=== PATIENT | male | born 1945 | race African-American/Black ===

== ENCOUNTER 2017-09-01 07:24 | Inpatient (IN) | payer OTHER ==
[2017-09-01 07:31] VITALS: BMI 21.7
--- NOTE | 2017-09-01 07:45 | PDOC ---
History of Present Illness <Leonela Andino - Last Filed: 09/01/17 11:22> - General History Source: Patient - History of Present Illness Initial Comments: 09/01/17 08:02 72 y.o. male with a PMH of HTN, HLD, and cardiac triple bypass (09/2012) presents c/o chest pain. Patient states the pain started @ 3 a.m. this morning and woke him from sleep. Pain is sharp, 8/10, intermittent, localized to his L lower chest with some associated shortness of breath but no lightheadedness, palpitations, diaphoresis. Patient also c/o LUQ pain that started yesterday afternoon while he was walking outside with his . 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 Patient's last BM was yesterday evening and was consistent with prior BM and he is tolerating PO intake. Patient denies fever, chills, nausea/vomiting, diarrhea/constipation aswell as recent travel or sick contacts. NKDA Surgical: Triple bypass (2012) PMD: Dr. Ludin Beaulieu Social: (+) nicotine - 1/2 ppd > 50 years, (-) alcohol, (-) recreational drugs <Lavonne Fuentes - Last Filed: 09/01/17 21:09> - General Chief Complaint: Chest Pain Stated Complaint: CHEST PAIN Time Seen by Provider: 09/01/17 07:44 Past History <Leonela Andino - Last Filed: 09/01/17 11:22> - Past Medical History Cardiac Disorders: Yes (TRIPLE BYPASS 09/2012) COPD: No HTN: Yes Hypercholesterolemia: Yes - Surgical History Cardiac Surgery: Yes (stents open heart sx 08/2012) - Immunization History Td Vaccination: (unknown) Immunization Up to Date: Yes (unknown) - Suicide/Smoking/Psychosocial Hx Smoking Status: Yes Smoking History: Current some day smoker Years of Tobacco Use: 20 Have you smoked in the past 12 months: Yes Number of Cigarettes Smoked Daily: 2 If you are a former smoker, when did you quit?: 08/12/12 Cigars Per Day: 0 Information on smoking cessation initiated: No 'Breaking Loose' booklet given: 03/20/14 Hx Alcohol Use: No Drug/Substance Use Hx: No Substance Use Type: None Hx Substance Use Treatment: No <Lavonne Fuentes - Last Filed: 09/01/17 21:09> - Past Medical History Allergies/Adverse Reactions: Allergies Allergy/AdvReac Type Severity Reaction Status Date / Time No Known Allergies Allergy Verified 09/01/17 07:25 Home Medications: Ambulatory Orders Apixaban [Eliquis] 5 mg PO DAILY 09/01/17 Latanoprost 0.005% Eye Drops [Xalatan 0.005% Eye Drops -] 1 drop OU HS 09/01/17 Metoprolol Succinate [Toprol Xl -] 25 mg PO DAILY 09/01/17 Tamsulosin HCl [Flomax] 0.4 mg PO DAILY 09/01/17 Review of Systems - Review of Systems Constitutional: No: Chills, Fever, Weakness HEENTM: No: Recent change in vision Respiratory: No: Cough, Shortness of Breath Cardiac (ROS): No: Chest Pain, Lightheadedness, Palpitations, Syncope ABD/GI: No: Constipated, Diarrhea, Nausea, Vomiting : No: Burning, Dysuria All Other Systems: Reviewed and Negative <Lavonne Fuentes - Last Filed: 09/01/17 21:09> *Physical Exam - Vital Signs Last Vital Signs Temp Pulse Resp BP Pulse Ox 104.2 F H 88 20 195/102 96 09/01/17 10:32 09/01/17 07:25 09/01/17 07:25 09/01/17 07:25 09/01/17 07:25 <Leonela Andino - Last Filed: 09/01/17 11:22> - Vital Signs Last Vital Signs Temp Pulse Resp BP Pulse Ox 98.8 F 88 20 195/102 96 09/01/17 07:25 09/01/17 07:25 09/01/17 07:25 09/01/17 07:25 09/01/17 07:25 - Physical Exam General Appearance: Yes: Nourished, Appropriately Dressed, Obese HEENT: positive: EOMI, ANGELA. negative: Tonsillar Exudate, Tonsillar Erythema, TM Bulging, TM Dull, TM Erythema Neck: negative: Trachea midline, Supple Respiratory/Chest: negative: Lungs Clear Cardiovascular: negative: S1, S2, Edema, JVD, Murmur Gastrointestinal/Abdominal: positive: Normal Bowel Sounds, Soft, Other (LUQ TTP on superficial and deep palpation). negative: Guarding, Rebound, Hernia, Mass Musculoskeletal: negative: CVA Tenderness (R), CVA Tenderness (L) Extremity: positive: Normal Capillary Refill, Normal Inspection Integumentary: positive: Normal Color, Dry, Warm Neurologic: positive: Fully Oriented, Alert <Lavonne Fuentes - Last Filed: 09/01/17 21:09> ED Treatment Course - LABORATORY CBC & Chemistry Diagram: 09/01/17 07:52 09/01/17 07:52 - ADDITIONAL ORDERS Additional order review: Laboratory Results 09/01/17 09/01/17 09/01/17 08:20 08:03 07:52 Sodium Potassium Chloride Carbon Dioxide Anion Gap BUN Creatinine Creat Clearance w eGFR Random Glucose Lactic Acid 2.2 H* Calcium Magnesium 2.0 D Total Bilirubin AST ALT Alkaline Phosphatase Creatine Kinase Troponin I B-Natriuretic Peptide Total Protein Albumin Urine Color Yellow Urine Appearance Cloudy Urine pH 5.0 Ur Specific [place] 1.013 Urine Protein 1+ H Urine Glucose (UA) Negative Urine Ketones Negative Urine Blood 2+ H Urine Nitrite Negative Urine Bilirubin Negative Urine Urobilinogen Negative Ur Leukocyte Esterase 3+ H D Urine WBC (Auto) 413 Urine RBC (Auto) 1 Urine Bacteria Rare Urine Mucus Rare 09/01/17 07:52 Sodium 139 Potassium 3.7 Chloride 104 Carbon Dioxide 23 Anion Gap 12 BUN 18 Creatinine 1.2 Creat Clearance w eGFR 59.68 Random Glucose 101 Lactic Acid Calcium 8.9 Magnesium Total Bilirubin 1.5 H D AST 17 D ALT 11 L D Alkaline Phosphatase 108 Creatine Kinase 64 Troponin I < 0.02 B-Natriuretic Peptide 184.87 H Total Protein 8.4 H Albumin 4.1 Urine Color Urine Appearance Urine pH Ur Specific [place] Urine Protein Urine Glucose (UA) Urine Ketones Urine Blood Urine Nitrite Urine Bilirubin Urine Urobilinogen Ur Leukocyte Esterase Urine WBC (Auto) Urine RBC (Auto) Urine Bacteria Urine Mucus 09/01/17 09:56 Influenza Types A,B Antigen (MAYRA) - Final Nasopharyngeal Swab - Final 09/01/17 07:52 RBC 6.10 H MCV 65.5 L MCHC 31.7 L RDW 50.1 H MPV 10.4 D Neutrophils % 79.4 D Lymphocytes % 16.8 D Monocytes % 2.4 L Eosinophils % 0.6 D Basophils % 0.8 - Medications Given in the ED: ED Medications Discontinued Medications Generic Name Dose Route Start Last Admin Trade Name Haylie PRN Reason Stop Dose Admin Acetaminophen 1,000 mg 09/01/17 10:32 09/01/17 10:43 Ofirmev Injection - IVPB 09/01/17 10:33 1,000 mg ONCE ONE Administration Vancomycin HCl 1,000 mg/ 250 mls @ 250 mls/hr 09/01/17 09:49 09/01/17 11:17 Dextrose IVPB 09/01/17 10:48 250 mls/hr ONCE ONE Administration Protocol Piperacillin/Tazobactam/Dextrose 2.25 gm in 50 mls @ 100 mls/hr 09/01/17 09: 50 09/01/17 10:18 Zosyn 2.25gm Ivpb (Premix) IVPB 09/01/17 10:19 100 mls/hr ONCE ONE Administration Protocol <Leonela Andino - Last Filed: 09/01/17 11:22> - LABORATORY CBC & Chemistry Diagram: 09/01/17 07:52 09/01/17 07:52 <Lavonne Fuentes - Last Filed: 09/01/17 21:09> Medical Decision Making - Medical Decision Making 09/01/17 08:43 72 y.o. male presents w/chest pain and PE significant for LUQ tenderness. Patient's @ bedside notes some AMS -- patient A&O x3 however refers to DDx includes mesenteric ischemia, r/o ACS, aortic dissection. Bedside U/S shows normal caliber aorta from sub-xiphoid to illaic, 1.9 cm diameter. Will obtain Troponin, EKG, UA + CT Head as patient's notes some AMS for the past 3 days on repeat exam. 09/01/17 10:32 CT Head negative for bleed/ischemia. Rectal Temp. 104; Likely source Urine - UA significant for 3+ Leukocyte Esterase, WBC 413, Tylenol + Broad spectrum coverage w/ Vanc and Zoysn -- Influenza swab pending. EKG shows NSR 82, LVH, no JO/STD's 09/01/17 20:11 Influenza negative. Patient admitted to inpatient medicine service for further evaluation. <Lavonne Fuentes - Last Filed: 09/01/17 21:09> *DC/Admit/Observation/Transfer - Discharge Dispostion Admit: Yes - Attestations Physician Attestion: 09/01/17 11:23 I, Dr. Leonela Andino MD, attest that this document has been prepared under my direction and personally reviewed by me in its entirety. I further attest, that it accurately reflects all work, treatment, procedures and medical decision -making performed by me. <Leonela Andino - Last Filed: 09/01/17 11:22> <Lavonne Fuentes - Last Filed: 09/01/17 21:09> Diagnosis at time of Disposition: Pneumonia, Urinary tract infection - Discharge Dispostion Condition at time of disposition: Stable
[2017-09-01 08:21] LABS: ALBUMIN 4.1 g/dl (3.4-5.0); ALK PHOS 108 U/L (45-117); ANION GAP 12 (8-16); BILIRUBIN,TOTAL 1.5 mg/dL (0.2-1.0); BLOOD UREA NITROGEN 18 mg/dL (7-18); CALCIUM 8.9 mg/dL (8.5-10.1); CHLORIDE 104 mmol/L (98-107); CO2 23 mmol/L (21-32); CREATININE 1.2 mg/dL (0.7-1.3); GLUCOSE,RANDOM 101 mg/dL (74-106); POTASSIUM 3.7 mmol/L (3.5-5.1); SGOT/AST 17 U/L (15-37); SGPT/ALT 11 U/L (12-78); SODIUM 139 mmol/L (136-145); TOT PROT 8.4 g/dl (6.4-8.2)
[2017-09-01 08:23] LABS: N-TERMINAL BNP 184.87 pg/ml (5-125)
[2017-09-01 08:33] LABS: BASO % 0.8 % (0-2.0); EOS % 0.6 % (0-4.5); HEMOGLOBIN 12.7 GM/dL (11.7-16.9); LYMPH % 16.8 % (8-40); MCH 20.8 pg (25.7-33.7); MCHC 31.7 g/dl (32.0-35.9); MEAN CELL VOLUME 65.5 fl (80-96); MEAN PLT VOLUME 10.4 fl (7.5-11.1); MONO % 2.4 % (3.8-10.2); NEUT % 79.4 % (42.8-82.8); PLATELET COUNT 279 K/MM3 (134-434); RDW 50.1 % (11.9-15.9); WHITE BLOOD COUNT 15.3 K/mm3 (4.0-10.0)
[2017-09-01 09:07] LABS: URINE APPEARANCE CLOUDY; URINE BILIRUBIN NEGATIVE (NEGATIVE); URINE BLOOD 2+ (NEGATIVE); URINE COLOR YELLOW; URINE GLUCOSE (UA) NEGATIVE (NEGATIVE); URINE KETONE NEGATIVE (NEGATIVE); URINE NITRITE NEGATIVE (NEGATIVE); URINE UROBILINOGEN NEGATIVE mg/dL (0.2-1.0)
[2017-09-01 09:10] LABS: URINE LEUK ESTERASE 3+ (NEGATIVE); URINE PROTEIN 1+ (NEGATIVE)
[2017-09-01 09:14] LABS: URINE BACTERIA RARE /hpf (NONE SEEN); URINE MUCUS RARE
[2017-09-01] MEDS ORDERED: VANCOMYCIN 1,000 MG in DEXTROSE 5%-WATER - 250 ML IVPB ONE (09:49)
[2017-09-01] MEDS ORDERED: PIPERACILLIN/TAZOB 2.25 GM 2.25 GM/50 ML BAG IVPB ONE (09:50)
--- NOTE | 2017-09-01 09:55 | EKG ---
Test Reason : Blood Pressure : / mmHG Vent. Rate : 082 BPM Atrial Rate : 082 BPM P-R Int : 140 ms QRS Dur : 094 ms QT Int : 354 ms P-R-T Axes : 078 062 076 degrees QTc Int : 413 ms NORMAL SINUS RHYTHM POSSIBLE LEFT ATRIAL ENLARGEMENT INCOMPLETE RIGHT BUNDLE BRANCH BLOCK LEFT VENTRICULAR HYPERTROPHY ABNORMAL ECG WHEN COMPARED WITH ECG OF 17-APR-2013 18:56, NO SIGNIFICANT CHANGE WAS FOUND Confirmed by LIZETT MUÑOZ, TRAE ([id number]) on 09/01/2017 9:55:06 AM Referred By: Confirmed By:TRAE PHOENIX MD
[2017-09-01] MEDS ORDERED: PIPERACILLIN/TAZOBACTAM 2.25 GM VIAL IVPB ONE (09:57)
[2017-09-01] MEDS ORDERED: ACETAMINOPHEN 1000 MG/100 ML VIAL (NON FORMULARY) IVPB ONE (10:32)
[2017-09-01] MEDS ORDERED: ACETAMINOPHEN INJECTION 100 ML IVPB ONE ×2 (10:42→18:36)
[2017-09-01] MEDS ORDERED: SODIUM CHLORIDE 1,000 ML IV SCH (11:15)
[2017-09-01] MEDS ORDERED: VANCOMYCIN 1 GRAM (PRE-DOCKED) 1,000 MG/250 ML BAG IVPB ONE (11:16)
--- NOTE | 2017-09-01 11:29 | PDOC ---
Attending Attestation - Resident Resident Name: Lavonne Fuentes - ED Attending Attestation I have performed the following: I have examined & evaluated the patient, The case was reviewed & discussed with the resident, I agree w/resident's findings & plan, Exceptions are as noted - Medical Decision Making 09/01/17 11:28 72-year-old male with multiple medical problems presents with confusion, fever to 104, and chest pain. Patient also found to have UTI, however x-ray reveals bilateral infiltrates. Lactate elevated to 2.2. We'll cover the patient broadly with vancomycin and Zosyn. Case discussed with nurse practitioner Yolanda, who accepts the patient for admission. She has also ordered fluids given the lactate of 2.2. Patient accepted for admission under Dr. Watson. Case discussed in detail with admitting physician including history, physical exam and ancillary studies. Admitting physician has assumed care for the patient, will follow all pending diagnostics and will complete the evaluation and treatment. <Leonela Andino - Last Filed: 09/01/17 11:27> - HPI HPI: 09/01/17 11:37 The patient is a 72 year old male with history of hypertension, hyperlipidemia, CAD s/p triple bypass 2012, who presents to the ED complaining of one day of left lower chest pain that is sharp, nonradiating, ranked 8/10, with some associated shortness of breath. Pt's reports that he has had intermittent confusion which is new for him, over the last 24 hours. No fever or chills. No nausea, vomiting, or diaphoresis. No headache or blurred vision. - Physicial Exam PE: 09/01/17 11:37 GENERAL: Awake, alert,oriented x2 ,confused, +rigors HEAD: No signs of trauma EYES: PERRLA, EOMI, sclera anicteric, conjunctiva clear ENT: Auricles normal inspection, hearing grossly normal, nares patent, oropharynx clear without exudates. Moist mucosa NECK: Normal ROM, supple, no lymphadenopathy, JVD, or masses LUNGS: Breath sounds equal, clear to auscultation bilaterally. No wheezes, and no crackles HEART: Regular rate and rhythm, normal S1 and S2, no murmurs, rubs or gallops. Midline sternal scar c/d/i ABDOMEN: Soft, nontender, normoactive bowel sounds. No guarding, no rebound. No masses RECTAL: Febrile 104, no bleeding EXTREMITIES: Normal range of motion, no edema. No clubbing or cyanosis. No cords, erythema, or tenderness BACK: No midline spinal tenderness in cervical/thoracic/lumbar region NEUROLOGICAL: Normal speech, cranial nerves intact, negative pronator drift, 5/ 5 strength in all 4 extremities, normal sensation to light touch in all 4 extremities, normal cerebellar exam,normal reflexes and tone, gait deferred SKIN: Warm, Dry, normal turgor, no rashes or lesions noted. Bedside sono with normal caliber aorta to 1.5cm from subxiphoid to iliacs Documentation prepared by Brina Campos, acting as chief medical director for Leonela Andino MD. <Brina Campos - Last Filed: 09/01/17 11:37>
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
[2017-09-01] MEDS ORDERED: AZITHROMYCIN IVPB 500 MG in DEXTROSE 5%-WATER - 250 ML IVPB ONE (12:00)
[2017-09-01] MEDS ORDERED: CEFTRIAXONE 1 GM/50 ML BAG ONE (13:20)
[2017-09-01] MEDS ORDERED: AZITHROMYCIN IVPB 250 ML IVPB ONE (13:22)
[2017-09-01] MEDS: CEFTRIAXONE 1 GM in DEXTROSE 5%-WATER - 50 ML IVPB SCH (13:42)
[2017-09-01] MEDS: metoPROLOL SUCCINATE 25 MG TAB.SR.24H (FP) PO SCH (16:30)
[2017-09-01] MEDS: APIXABAN 5 MG TABLET PO SCH (16:30)
[2017-09-01] MEDS ORDERED: SODIUM CHLORIDE 1,000 ML IV ONE (18:17)
[2017-09-01] MEDS: ACETAMINOPHEN 325 MG TABLET (FP) PO PRN (21:42)
[2017-09-02] MEDS: LATANOPROST 0.005% OPHTH SOLN 2.5ML BOTTLE OU SCH ×2 (03:40→22:04)
[2017-09-02 08:16] LABS: HEMATOCRIT 35.6 % (35.4-49); HEMOGLOBIN 11.2 GM/dL (11.7-16.9); MCH 20.7 pg (25.7-33.7); MCHC 31.5 g/dl (32.0-35.9); MEAN CELL VOLUME 65.6 fl (80-96); MEAN PLT VOLUME 10.8 fl (7.5-11.1); RBC 5.43 M/mm3 (4.00-5.60); RDW 49.7 % (11.9-15.9); WHITE BLOOD COUNT 21.4 K/mm3 (4.0-10.0)
[2017-09-02 08:42] LABS: ALBUMIN 3.2 g/dl (3.4-5.0); ANION GAP 11 (8-16); BLOOD UREA NITROGEN 17 mg/dL (7-18); CALCIUM 8.5 mg/dL (8.5-10.1); CHLORIDE 107 mmol/L (98-107); CO2 23 mmol/L (21-32); GLUCOSE,RANDOM 89 mg/dL (74-106); MAGNESIUM 2.2 mg/dL (1.8-2.4); PHOSPHOROUS 2.4 mg/dL (2.5-4.9); POTASSIUM 3.5 mmol/L (3.5-5.1); SGOT/AST 17 U/L (15-37); SGPT/ALT 11 U/L (12-78); SODIUM 141 mmol/L (136-145)
[2017-09-02 08:44] LABS: ALK PHOS 73 U/L (45-117); BILIRUBIN,TOTAL 1.5 mg/dL (0.2-1.0); TOT PROT 6.9 g/dl (6.4-8.2)
[2017-09-02] MEDS ORDERED: cefTRIAXone SODIUM 1 GM VIAL ONE (09:04)
[2017-09-02] MEDS ORDERED: DEXTROSE 5%-WATER - 50 ML IVPB ONE (09:04)
[2017-09-02] MEDS ORDERED: PT OWN MED DRAWER 7, Y5N ONE ×5 (09:04→21:46)
[2017-09-02] MEDS: metoPROLOL SUCCINATE 25 MG TAB.SR.24H (FP) PO SCH (09:18)
[2017-09-02] MEDS: TAMSULOSIN HCL 0.4 MG CAP.ER.24H (FP) PO SCH (09:18)
[2017-09-02] MEDS: CEFTRIAXONE 1 GM in DEXTROSE 5%-WATER - 50 ML IVPB SCH (09:19)
[2017-09-02] MEDS: APIXABAN 5 MG TABLET PO SCH (09:41)
[2017-09-02 09:47] LABS: PLATELET ESTIMATE NORMAL
[2017-09-02 10:40] LABS: PLATELET COUNT 232 K/MM3 (134-434)
[2017-09-02 10:41] LABS: ANISOCYTOSIS 3+; MACROCYTOSIS 1+; OVALOCYTE 1+; TEAR DROP CELLS 2+
[2017-09-02] MEDS: AZITHROMYCIN IVPB 250 MG in DEXTROSE 5%-WATER - 250 ML IVPB SCH (11:23)
--- NOTE | 2017-09-02 13:40 | CON.CARD ---
Consult Consult Specialty:: Cardiology Referred by:: Dr. Desai Reason for Consultation:: chest pain - History of Present Illness Chief Complaint: fever, confusion, chest pain History of Present Illness: 72 year-old man with the history of hypertension, hyperlipidemia, hyperthyroid, coronary artery disease status post CABG 2011, paroxysmal atrial fibrillation on Eliquis, nuclear stress test within last few weeks in office showed no ischemia and normal LVEF admitted with fever, confusion, atypical chest pain. Pt being treated for pneumonia and uti. seen and examined today in nad. denies any chest pain currently. denies sob. no palpitations. no pnd, orthopnea, or LE edema. - History Source History Provided By: Patient, Medical Record Limitations to Obtaining History: Poor Historian - Past Medical History Cardio/Vascular: Yes: CAD, HTN (hx of CABG), Hyperlipdemia Pulmonary: Yes: COPD Gastrointestinal: Yes: Pancreatitis ENT: Yes: Other (glaucoma) Endocrine: Yes: Hyperthyroidism - Past Surgical History Past Surgical History: Yes: CABG - Alcohol/Substance Use Hx Alcohol Use: No - Smoking History Smoking history: Current some day smoker Have you smoked in the past 12 months: Yes Aproximately how many cigarettes per day: 2 If you are a former smoker, when did you quit?: 08/12/12 - Social History ADL: Independent History of Recent Travel: No Home Medications - Allergies Allergies/Adverse Reactions: Allergies Allergy/AdvReac Type Severity Reaction Status Date / Time No Known Allergies Allergy Verified 09/01/17 07:25 - Home Medications Home Medications: Ambulatory Orders Apixaban [Eliquis] 5 mg PO DAILY 09/01/17 Latanoprost 0.005% Eye Drops [Xalatan 0.005% Eye Drops -] 1 drop OU HS 09/01/17 Metoprolol Succinate [Toprol Xl -] 25 mg PO DAILY 09/01/17 Tamsulosin HCl [Flomax] 0.4 mg PO DAILY 09/01/17 Family Disease History - Family Disease History Family History: Denies Review of Systems - Review of Systems Constitutional: reports: Diaphoresis, Fever, Malaise, Weakness. denies: No Symptoms, Chills, Lethargy, Loss of Appetite, Night Sweats, Unintentional Wgt. Loss, Other Eyes: denies: No Symptoms, Blind Spots, Blurred Vision, Double Vision, Eye Pain , Floaters, Photophobia, Recent Change in Vision, Other HENT: denies: No Symptoms, Difficult Swallowing, Ear Discharge, Ear Pain, Epistaxis, Gingival Bleeding, Hearing Loss, Mouth Swelling, Nasal Congestion, Ocular Prosthesis, Throat Pain, Toothache, Ringing in Ears, Other Neck: denies: No Symptoms, Decreased ROM, Lumps, Pain on Movement, Stiffness, Swollen Glands, Tenderness, Other Cardiovascular: reports: Chest Pain. denies: No Symptoms, Edema, Palpitations, Shortness of Breath, Other Respiratory: denies: No Symptoms, Cough, Exercise Intolerance, Hemoptysis, Orthopnea, PND, Snoring, SOB, SOB on Exertion, Wheezing, Other Gastrointestinal: denies: No Symptoms, Abdominal Pain, Bloating, Constipation, Diarrhea, Dysphagia, Indigestion, Melena, Nausea, Rectal Bleeding, Vomiting, Vomiting Blood, Other Genitourinary: denies: No Symptoms, Burning, Discharge, Dysuria, Flank Pain, Frequency, Hematuria, Incontinence, Lesions, Menses, Pain, Testicular Mass, Testicular Pain, Testicular Swelling, Urgency, Vaginal Bleeding, Other Breasts: denies: No Symptoms Reported, See HPI, Breast Implants, Discharge from Nipple, Lumps, Pain, Skin Changes, Other Musculoskeletal: denies: No Symptoms, Back Pain, Crepitus, Decreased ROM, Extremity Pain, Joint Pain, Joint Swelling, Muscle Pain, Muscle Cramps, Muscle Weakness, Other Integumentary: denies: No Symptoms, Blister, Bruising, Change in Color, Eczema, Erythema, Incision, Lesions, Lump, Pallor, Pruritis, Rash, Wound, Other Neurological: denies: No Symptoms, Change in LOC, Change in Speech, Confusion, Dizziness, Headache, Incoordination, Numbness, Parasthesia, Pre-Existing Deficit , Seizure, Syncope, Tremors, Unsteady Gait, Weakness, Other Endocrine: denies: No Symptoms, Excessive Sweating, Flushing, Increased Hunger, Increased Thirst, Intolerance to Cold, Intolerance to Heat, Unexplained Weight Gain, Unexplained Weight Loss, Other Hematology/Lymphatic: denies: No Symptoms, Easily Bruised, Excessive Bleeding, Swollen Glands, Other Psychiatric: denies: No Symptoms, Altered Sleep Pattern, Anxiety, Depression, Hallucinations, Panic, Paranoia, Suicidal, Other - Risk Factors Known Risk Factors: Yes: Hypercholesterolemia, Hypertension Vital Signs: Vital Signs Temperature 99.5 F 03/22/18 10:00 Pulse Rate 73 09/02/17 10:00 Respiratory Rate 20 09/02/17 10:00 Blood Pressure 127/57 09/02/17 10:00 O2 Sat by Pulse Oximetry (%) 95 09/02/17 09:00 Constitutional: Yes: Well Nourished, No Distress, Calm Eyes: Yes: WNL, Conjunctiva Clear, EOM Intact HENT: Yes: WNL, Atraumatic, Normocephalic Neck: Yes: WNL, Supple, Trachea Midline Respiratory: Yes: WNL, Regular, CTA Bilaterally. No: Rales, Rhonchi, Wheezes Gastrointestinal: Yes: WNL, Normal Bowel Sounds, Soft. No: Distention, Tenderness Renal/: Yes: WNL Cardiovascular: Yes: WNL, Regular Rate and Rhythm. No: Bradycardia, Tachycardia , Pulse Irregular, Gallop, Rub, Varicosities JVD: No Carotid Bruit: No PMI: Non-Displaced Heart Sounds: Yes: S1, S2. No: Split S2, S3, S4, Clicks, Gallop, Rub, Bruit Murmur: No: Systolic Murmur, Diastolic Murmur Musculoskeletal: Yes: WNL Extremities: Yes: WNL Edema: No Peripheral Pulses WNL: Yes Peripheral Pulses: 2+ Left Doralis Pedis, 2+ Right Dorsalis Pedis Integumentary: Yes: WNL Neurological: Yes: Alert, Oriented Psychiatric: Yes: Alert, Oriented - Other Data Labs, Other Data: CBC, BMP 09/02/17 06:20 09/02/17 06:20 Troponin, BNP 09/01/17 09/02/17 09/02/17 21:10 06:20 06:20 Troponin I 0.12 H D 0.07 H D Cancelled Troponin, BNP 09/01/17 09/02/17 09/02/17 21:10 06:20 06:20 Troponin I 0.12 H D 0.07 H D Cancelled ekg-nsr 82bpm, lvh, incomplete rbbb, nsst Echo: Report Reviewed Prior Cardiac Procedures: CABG, Cardiac Catheterization Imaging - Results Chest X-ray: Report Reviewed, Image Reviewed EKG: Report Reviewed, Image Reviewed Other: Report Reviewed, Image Reviewed Assessment/Plan 72 year-old man with the history of hypertension, hyperlipidemia, hyperthyroid, coronary artery disease status post CABG 2011, paroxysmal atrial fibrillation on Eliquis, nuclear stress test within last few weeks in office showed no ischemia and normal LVEF admitted with fever, confusion, atypical chest pain. Pt being treated for pneumonia and uti. seen and examined today in nad. denies any chest pain currently. denies sob. no palpitations. no pnd, orthopnea, or LE edema. Chest pain-atypical, unlikely ACS, h/o CAD s/p CABG -cardiac enzymes not significantly elevated and trended down -nuclear stress test done in office 2 weeks ago showed normal perfusion no ischemia normal LVEF -echo 10/2016 in office showed normal LV systolic function -no additional inpatient cardiac work up needed at this time -cont home cardiac meds -resume home asa and statin if no contraindications Pafib-currently NSR -cont home meds including eliquis and toprol
[2017-09-02] MEDS: ACETAMINOPHEN 325 MG TABLET (FP) PO PRN (13:58)
--- NOTE | 2017-09-02 14:05 | CON.ID ---
Consult Consult Specialty:: infectious diseases Reason for Consultation:: fever,weakness,lactic acid,leukocytosis - History of Present Illness Chief Complaint: cough,weaknes History of Present Illness: 72 year old male with cardiac triple bypass HTN, HLD, BPH afib/flutter. according to the patient then at 3am he starting having rigors and his body was cold. His called EMS. She states for 1 year she has noted him having urinary frequency and with altered mental status. They went to dinner last night , he ate fatty foods and has lower/periumbilical pain. currently patient feels much better and has no complaints by the bedside patient started on abx - History Source History Provided By: Patient, Family Member Limitations to Obtaining History: No Limitations - Past Medical History Cardio/Vascular: Yes: HTN (hx of CABG) Pulmonary: Yes: COPD Gastrointestinal: Yes: Pancreatitis ENT: Yes: Other (glaucoma) - Past Surgical History Past Surgical History: Yes: CABG - Alcohol/Substance Use Hx Alcohol Use: No - Smoking History Smoking history: Current some day smoker Have you smoked in the past 12 months: Yes Aproximately how many cigarettes per day: 2 If you are a former smoker, when did you quit?: 08/12/12 - Social History ADL: Independent History of Recent Travel: No Home Medications - Allergies Allergies/Adverse Reactions: Allergies Allergy/AdvReac Type Severity Reaction Status Date / Time No Known Allergies Allergy Verified 09/01/17 07:25 - Home Medications Home Medications: Ambulatory Orders Apixaban [Eliquis] 5 mg PO DAILY 09/01/17 Latanoprost 0.005% Eye Drops [Xalatan 0.005% Eye Drops -] 1 drop OU HS 09/01/17 Metoprolol Succinate [Toprol Xl -] 25 mg PO DAILY 09/01/17 Tamsulosin HCl [Flomax] 0.4 mg PO DAILY 09/01/17 Review of Systems - Review of Systems Constitutional: reports: Fever, Weakness, Other Eyes: reports: No Symptoms HENT: reports: No Symptoms Neck: reports: No Symptoms Cardiovascular: reports: No Symptoms Respiratory: reports: Cough Gastrointestinal: reports: Abdominal Pain Genitourinary: reports: No Symptoms Musculoskeletal: reports: No Symptoms Integumentary: reports: No Symptoms Neurological: reports: Other Endocrine: reports: No Symptoms Hematology/Lymphatic: reports: No Symptoms Psychiatric: reports: No Symptoms Physical Exam Vital Signs: Vital Signs Temperature 99.5 F 09/02/17 10:00 Pulse Rate 73 09/02/17 10:00 Respiratory Rate 20 09/02/17 10:00 Blood Pressure 127/57 09/02/17 10:00 O2 Sat by Pulse Oximetry (%) 95 09/02/17 09:00 Constitutional: Yes: No Distress, Calm Eyes: Yes: Conjunctiva Clear HENT: Yes: Atraumatic, Normocephalic Neck: Yes: Supple, Trachea Midline Cardiovascular: Yes: Regular Rate and Rhythm Respiratory: Yes: Regular, Poor Air Entry Gastrointestinal: Yes: Normal Bowel Sounds, Soft Musculoskeletal: Yes: WNL Extremities: Yes: Other Neurological: Yes: Alert, Oriented Psychiatric: Yes: Alert, Oriented Labs: CBC, BMP 09/02/17 06:20 09/02/17 06:20 Imaging - Results Chest X-ray: Report Reviewed, Image Reviewed Cat Scan: Report Reviewed, Image Reviewed Assessment/Plan 72 year-old man with the history of hypertension, hyperlipidemia, hyperthyroid, coronary artery disease status post CABG 2011, paroxysmal atrial fibrillation on Eliquis, nuclear stress test within last few weeks in office showed no ischemia and normal LVEF admitted with fever, confusion, atypical chest pain. pna fever ams weakness looking at the picture and xray there is chance patient has pneumonia as the xray is showing infiltrates plan will start patient on zosyn hydration incentive claribel rest as per primary team await for all cx reports
[2017-09-02] MEDS: PIPERACILLIN/TAZOB 3.375 GM 3.375 GM in DEXTROSE 5%-WATER - 50 ML IVPB SCH ×2 (15:50→18:31)
--- NOTE | 2017-09-02 23:02 | PN ---
Progress Note, Physician - Current Medication List Current Medications: Active Medications Acetaminophen (Tylenol -) 650 mg PO Q4H PRN PRN Reason: PAIN LEVEL 4 - 6 Last Admin: 09/02/17 13:58 Dose: 650 mg Apixaban (Eliquis -) 5 mg PO DAILY [facility] Last Admin: 09/02/17 09:41 Dose: 5 mg Azithromycin 250 mg/ Dextrose 250 mls @ 250 mls/hr IVPB DAILY [facility] Stop: 09/06/17 09:59 Last Admin: 09/02/17 11:23 Dose: 250 mls/hr Piperacillin Sod/Tazobactam (Sod 3.375 gm/ Dextrose) 50 mls @ 100 mls/hr IVPB Q8H-IV [facility] PRN Reason: Protocol Last Admin: 09/02/17 18:31 Dose: 100 mls/hr Latanoprost (Xalatan 0.005% Eye Drops -) 1 drop OU HS [facility] Last Admin: 09/02/17 22:04 Dose: 1 drop Metoprolol Succinate (Toprol Xl -) 25 mg PO DAILY [facility] Last Admin: 09/02/17 09:18 Dose: 25 mg Tamsulosin HCl (Flomax -) 0.4 mg PO DAILY@0830 [facility] Last Admin: 09/02/17 09:18 Dose: 0.4 mg - Objective Vital Signs: Vital Signs Temperature 98.7 F 09/02/17 18:00 Pulse Rate 76 09/02/17 18:00 Respiratory Rate 20 09/02/17 18:00 Blood Pressure 104/59 09/02/17 18:00 O2 Sat by Pulse Oximetry (%) 95 09/02/17 09:00 Labs: CBC, BMP 09/02/17 06:20 09/02/17 06:20
[2017-09-03] MEDS: PIPERACILLIN/TAZOB 3.375 GM 3.375 GM in DEXTROSE 5%-WATER - 50 ML IVPB SCH ×3 (01:58→18:00)
[2017-09-03] MEDS ORDERED: PT OWN MED DRAWER 7, Y5N ONE ×3 (10:27→22:05)
[2017-09-03] MEDS: metoPROLOL SUCCINATE 25 MG TAB.SR.24H (FP) PO SCH (10:30)
[2017-09-03] MEDS: AZITHROMYCIN IVPB 250 MG in DEXTROSE 5%-WATER - 250 ML IVPB SCH (10:30)
[2017-09-03] MEDS: APIXABAN 5 MG TABLET PO SCH (10:30)
[2017-09-03] MEDS: TAMSULOSIN HCL 0.4 MG CAP.ER.24H (FP) PO SCH (10:30)
--- NOTE | 2017-09-03 14:28 | PN ---
Progress Note, Physician History of Present Illness: feels better had spikes of fever cx send currently no problems - Current Medication List Current Medications: Active Medications Acetaminophen (Tylenol -) 650 mg PO Q4H PRN PRN Reason: PAIN LEVEL 4 - 6 Last Admin: 09/02/17 13:58 Dose: 650 mg Apixaban (Eliquis -) 5 mg PO DAILY [facility] Last Admin: 09/03/17 10:30 Dose: 5 mg Azithromycin 250 mg/ Dextrose 250 mls @ 250 mls/hr IVPB DAILY [facility] Stop: 09/06/17 09:59 Last Admin: 09/03/17 10:30 Dose: 250 mls/hr Piperacillin Sod/Tazobactam (Sod 3.375 gm/ Dextrose) 50 mls @ 100 mls/hr IVPB Q8H-IV [facility] PRN Reason: Protocol Last Admin: 09/03/17 12:42 Dose: 100 mls/hr Latanoprost (Xalatan 0.005% Eye Drops -) 1 drop OU HS [facility] Last Admin: 09/02/17 22:04 Dose: 1 drop Metoprolol Succinate (Toprol Xl -) 25 mg PO DAILY [facility] Last Admin: 09/03/17 10:30 Dose: 25 mg Tamsulosin HCl (Flomax -) 0.4 mg PO DAILY@0830 [facility] Last Admin: 09/03/17 10:30 Dose: 0.4 mg - Objective Vital Signs: Vital Signs Temperature 99.4 F 09/03/17 10:00 Pulse Rate 73 09/03/17 10:00 Respiratory Rate 22 09/03/17 10:00 Blood Pressure 129/57 09/03/17 10:00 O2 Sat by Pulse Oximetry (%) 93 L 09/03/17 10:30 Constitutional: Yes: No Distress, Calm Cardiovascular: Yes: Regular Rate and Rhythm Respiratory: Yes: Regular, Poor Air Entry, Rhonchi Gastrointestinal: Yes: Normal Bowel Sounds, Soft Musculoskeletal: Yes: WNL Extremities: Yes: Other Neurological: Yes: Alert, Oriented Psychiatric: Yes: Alert, Oriented Labs: CBC, BMP 09/02/17 06:20 09/02/17 06:20 Assessment/Plan pna fever ams weakness plan continue zosyn cbc tomorrow continue current mgmt incentive claribel await for all results
[2017-09-03] MEDS: ACETAMINOPHEN 325 MG TABLET (FP) PO PRN (16:41)
[2017-09-03] MEDS: LATANOPROST 0.005% OPHTH SOLN 2.5ML BOTTLE OU SCH (21:52)
--- NOTE | 2017-09-03 22:31 | PN ---
Progress Note, Physician - Current Medication List Current Medications: Active Medications Acetaminophen (Tylenol -) 650 mg PO Q4H PRN PRN Reason: PAIN LEVEL 4 - 6 Last Admin: 09/03/17 16:41 Dose: 650 mg Apixaban (Eliquis -) 5 mg PO DAILY [facility] Last Admin: 09/03/17 10:30 Dose: 5 mg Azithromycin 250 mg/ Dextrose 250 mls @ 250 mls/hr IVPB DAILY [facility] Stop: 09/06/17 09:59 Last Admin: 09/03/17 10:30 Dose: 250 mls/hr Piperacillin Sod/Tazobactam (Sod 3.375 gm/ Dextrose) 50 mls @ 100 mls/hr IVPB Q8H-IV [facility] PRN Reason: Protocol Last Admin: 09/03/17 18:00 Dose: 100 mls/hr Latanoprost (Xalatan 0.005% Eye Drops -) 1 drop OU HS [facility] Last Admin: 09/03/17 21:52 Dose: 1 drop Metoprolol Succinate (Toprol Xl -) 25 mg PO DAILY [facility] Last Admin: 09/03/17 10:30 Dose: 25 mg Tamsulosin HCl (Flomax -) 0.4 mg PO DAILY@0830 [facility] Last Admin: 09/03/17 10:30 Dose: 0.4 mg - Objective Vital Signs: Vital Signs Temperature 102.7 F H 09/03/17 16:33 Pulse Rate 72 09/03/17 16:33 Respiratory Rate 20 09/03/17 16:33 Blood Pressure 140/63 09/03/17 16:33 O2 Sat by Pulse Oximetry (%) 93 L 09/03/17 10:30 Labs: CBC, BMP 09/02/17 06:20 09/02/17 06:20
[2017-09-04] MEDS: PIPERACILLIN/TAZOB 3.375 GM 3.375 GM in DEXTROSE 5%-WATER - 50 ML IVPB SCH ×3 (01:51→17:40)
[2017-09-04] MEDS: ACETAMINOPHEN 325 MG TABLET (FP) PO PRN ×2 (01:54→14:18)
[2017-09-04] MEDS ORDERED: PT OWN MED DRAWER 7, Y5N ONE ×2 (09:39→23:07)
[2017-09-04] MEDS: TAMSULOSIN HCL 0.4 MG CAP.ER.24H (FP) PO SCH (09:44)
[2017-09-04] MEDS: metoPROLOL SUCCINATE 25 MG TAB.SR.24H (FP) PO SCH (09:44)
[2017-09-04] MEDS: APIXABAN 5 MG TABLET PO SCH (09:44)
[2017-09-04] MEDS: AZITHROMYCIN IVPB 250 MG in DEXTROSE 5%-WATER - 250 ML IVPB SCH (10:29)
--- NOTE | 2017-09-04 13:29 | PN ---
Progress Note, Physician History of Present Illness: patient spiking fevers. had high grade fever yesterday all cx send currently feeling well - Current Medication List Current Medications: Active Medications Acetaminophen (Tylenol -) 650 mg PO Q4H PRN PRN Reason: PAIN LEVEL 4 - 6 Last Admin: 09/04/17 01:54 Dose: 650 mg Apixaban (Eliquis -) 5 mg PO DAILY [facility] Last Admin: 09/04/17 09:44 Dose: 5 mg Azithromycin 250 mg/ Dextrose 250 mls @ 250 mls/hr IVPB DAILY [facility] Stop: 09/06/17 09:59 Last Admin: 09/04/17 10:29 Dose: 250 mls/hr Piperacillin Sod/Tazobactam (Sod 3.375 gm/ Dextrose) 50 mls @ 100 mls/hr IVPB Q8H-IV [facility] PRN Reason: Protocol Last Admin: 09/04/17 09:44 Dose: 100 mls/hr Latanoprost (Xalatan 0.005% Eye Drops -) 1 drop OU HS [facility] Last Admin: 09/03/17 21:52 Dose: 1 drop Metoprolol Succinate (Toprol Xl -) 25 mg PO DAILY [facility] Last Admin: 09/04/17 09:44 Dose: 25 mg Tamsulosin HCl (Flomax -) 0.4 mg PO DAILY@0830 [facility] Last Admin: 09/04/17 09:44 Dose: 0.4 mg - Objective Vital Signs: Vital Signs Temperature 97.8 F 09/04/17 06:00 Pulse Rate 72 09/04/17 06:00 Respiratory Rate 20 09/04/17 06:00 Blood Pressure 132/72 09/04/17 06:00 O2 Sat by Pulse Oximetry (%) 93 L 09/03/17 21:00 Constitutional: Yes: No Distress, Calm Cardiovascular: Yes: Regular Rate and Rhythm Respiratory: Yes: Poor Air Entry, Rhonchi Gastrointestinal: Yes: Normal Bowel Sounds, Soft Musculoskeletal: Yes: WNL Extremities: Yes: WNL Neurological: Yes: Alert, Oriented Psychiatric: Yes: Alert, Oriented Labs: CBC, BMP 09/02/17 06:20 09/02/17 06:20 Assessment/Plan 72 year-old man with the history of hypertension, hyperlipidemia, hyperthyroid, coronary artery disease status post CABG 2011, paroxysmal atrial fibrillation on Eliquis, nuclear stress test within last few weeks in office showed no ischemia and normal LVEF admitted with fever, confusion, atypical chest pain. pna fever ams weakness plan continue zosyn will await for cx to back
--- NOTE | 2017-09-04 13:40 | CON.PULM ---
Consult Consult Specialty:: PULMONARY Referred by:: OLU Reason for Consultation:: PNEUMONIA - History of Present Illness Chief Complaint: COUGH/SOB History of Present Illness: This 72 year old male with cardiac triple bypass (09/2012), HTN, HLD, BPH afib/ flutter. 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 His called EMS. She states for 1 year she has noted him having urinary frequency and with altered mental status. They went to dinner last night, he ate fatty foods and has lower/periumbilical pain. - History Source History Provided By: Patient, Family Member, Medical Record Limitations to Obtaining History: Poor Historian - Past Medical History [employer]: No: Alzheimer's Cardio/Vascular: Yes: HTN (hx of CABG) Pulmonary: Yes: COPD Gastrointestinal: Yes: Pancreatitis. No: Ascites ENT: Yes: Other (glaucoma) Endocrine: Yes: Hyperthyroidism - Past Surgical History Past Surgical History: Yes: CABG - Alcohol/Substance Use Hx Alcohol Use: No - Smoking History Smoking history: Current some day smoker Have you smoked in the past 12 months: Yes Aproximately how many cigarettes per day: 2 If you are a former smoker, when did you quit?: 08/12/12 - Social History ADL: Independent Place of : [facility] History of Recent Travel: No Home Medications - Allergies Allergies/Adverse Reactions: Allergies Allergy/AdvReac Type Severity Reaction Status Date / Time No Known Allergies Allergy Verified 09/01/17 07:25 - Home Medications Home Medications: Ambulatory Orders Apixaban [Eliquis] 5 mg PO DAILY 09/01/17 Latanoprost 0.005% Eye Drops [Xalatan 0.005% Eye Drops -] 1 drop OU HS 09/01/17 Metoprolol Succinate [Toprol Xl -] 25 mg PO DAILY 09/01/17 Tamsulosin HCl [Flomax] 0.4 mg PO DAILY 09/01/17 Review of Systems - Review of Systems Constitutional: reports: Fever. denies: Diaphoresis Eyes: denies: Blurred Vision HENT: denies: Difficult Swallowing Neck: denies: Decreased ROM Cardiovascular: reports: Chest Pain Respiratory: reports: Cough, Exercise Intolerance, SOB on Exertion, Wheezing. denies: Hemoptysis Gastrointestinal: reports: Abdominal Pain Genitourinary: denies: Burning Physical Exam Vital Sings: Vital Signs Temperature 97.8 F 09/04/17 06:00 Pulse Rate 72 09/04/17 06:00 Respiratory Rate 20 09/04/17 06:00 Blood Pressure 132/72 09/04/17 06:00 O2 Sat by Pulse Oximetry (%) 93 L 09/03/17 21:00 Constitutional: Yes: Calm Eyes: Yes: EOM Intact HENT: Yes: Normocephalic Neck: Yes: Trachea Midline Cardiovascular: Yes: Regular Rate and Rhythm, S1, S2 Respiratory: Yes: Rales (right base), Rhonchi Gastrointestinal: Yes: Normal Bowel Sounds Edema: No Neurological: Yes: Alert Labs: CBC, BMP 09/02/17 06:20 09/02/17 06:20 REST REVIEWED Imaging - Results Chest X-ray: Report Reviewed, Image Reviewed Problem List - Problems (1) Pneumonia Code(s): J18.9 - PNEUMONIA, UNSPECIFIED ORGANISM (2) Abdominal pain Code(s): R10.9 - UNSPECIFIED ABDOMINAL PAIN (3) Chronic pancreatitis Code(s): K86.1 - OTHER CHRONIC PANCREATITIS Assessment/Plan CONTINUE ANTIBIOTICS/O2 SUPPLEMENTATION/BRONCHODILATORS CONSIDER CT CHEST CONSIDER GI EVAL FOR HICCOUGHS SINCE ADMISSION Sveta LEE MD
--- NOTE | 2017-09-04 22:26 | PN ---
Progress Note, Physician History of Present Illness: No new complaints - Current Medication List Current Medications: Active Medications Acetaminophen (Tylenol -) 650 mg PO Q4H PRN PRN Reason: PAIN LEVEL 4 - 6 Last Admin: 09/04/17 14:18 Dose: 650 mg Apixaban (Eliquis -) 5 mg PO DAILY [facility] Last Admin: 09/04/17 09:44 Dose: 5 mg Azithromycin 250 mg/ Dextrose 250 mls @ 250 mls/hr IVPB DAILY [facility] Stop: 09/06/17 09:59 Last Admin: 09/04/17 10:29 Dose: 250 mls/hr Piperacillin Sod/Tazobactam (Sod 3.375 gm/ Dextrose) 50 mls @ 100 mls/hr IVPB Q8H-IV [facility] PRN Reason: Protocol Last Admin: 09/04/17 17:40 Dose: 100 mls/hr Latanoprost (Xalatan 0.005% Eye Drops -) 1 drop OU HS [facility] Last Admin: 09/03/17 21:52 Dose: 1 drop Metoprolol Succinate (Toprol Xl -) 25 mg PO DAILY [facility] Last Admin: 09/04/17 09:44 Dose: 25 mg Tamsulosin HCl (Flomax -) 0.4 mg PO DAILY@0830 [facility] Last Admin: 09/04/17 09:44 Dose: 0.4 mg - Objective Vital Signs: Vital Signs Temperature 98.2 F 09/04/17 18:24 Pulse Rate 61 09/04/17 18:24 Respiratory Rate 20 09/04/17 18:24 Blood Pressure 113/61 09/04/17 18:24 O2 Sat by Pulse Oximetry (%) 90 L 09/04/17 09:00 Neck: Yes: WNL, Supple Cardiovascular: Yes: Pulse Irregular Respiratory: Yes: Diminished Gastrointestinal: Yes: WNL, Normal Bowel Sounds, Soft Labs: CBC, BMP 09/02/17 06:20 09/02/17 06:20 Problem List - Problems (1) Sepsis Assessment/Plan: Due to UTI vs pneumonia Follow cultures Code(s): A41.9 - SEPSIS, UNSPECIFIED ORGANISM (2) Metabolic encephalopathy Assessment/Plan: Due to sepsis Code(s): G93.41 - METABOLIC ENCEPHALOPATHY (3) A-fib Assessment/Plan: Heart rate controlled Elevated troponin ?Demand ischemia Cont eliquis/toprol Code(s): I48.91 - UNSPECIFIED ATRIAL FIBRILLATION (4) BPH (benign prostatic hyperplasia) Code(s): N40.0 - BENIGN PROSTATIC HYPERPLASIA WITHOUT LOWER URINRY TRACT SYMP (5) HTN (hypertension) Code(s): I10 - ESSENTIAL (PRIMARY) HYPERTENSION (6) Intractable hiccups Code(s): R06.6 - HICCOUGH
[2017-09-04] MEDS: LATANOPROST 0.005% OPHTH SOLN 2.5ML BOTTLE OU SCH (23:10)
[2017-09-05] MEDS ORDERED: PT OWN MED DRAWER 7, Y5N ONE ×2 (01:58→20:36)
[2017-09-05] MEDS: PIPERACILLIN/TAZOB 3.375 GM 3.375 GM in DEXTROSE 5%-WATER - 50 ML IVPB SCH ×3 (02:56→19:17)
--- NOTE | 2017-09-05 09:53 | PN ---
Progress Note, Physician Chief Complaint: denies chest pain or SOB, feels better - Current Medication List Current Medications: Active Medications Acetaminophen (Tylenol -) 650 mg PO Q4H PRN PRN Reason: PAIN LEVEL 4 - 6 Last Admin: 09/04/17 14:18 Dose: 650 mg Apixaban (Eliquis -) 5 mg PO DAILY [facility] Last Admin: 09/04/17 09:44 Dose: 5 mg Azithromycin 250 mg/ Dextrose 250 mls @ 250 mls/hr IVPB DAILY [facility] Stop: 09/06/17 09:59 Last Admin: 09/04/17 10:29 Dose: 250 mls/hr Piperacillin Sod/Tazobactam (Sod 3.375 gm/ Dextrose) 50 mls @ 100 mls/hr IVPB Q8H-IV [facility] PRN Reason: Protocol Last Admin: 09/05/17 02:56 Dose: 100 mls/hr Latanoprost (Xalatan 0.005% Eye Drops -) 1 drop OU HS [facility] Last Admin: 09/04/17 23:10 Dose: 1 drop Metoprolol Succinate (Toprol Xl -) 25 mg PO DAILY [facility] Last Admin: 09/04/17 09:44 Dose: 25 mg Tamsulosin HCl (Flomax -) 0.4 mg PO DAILY@0830 [facility] Last Admin: 09/04/17 09:44 Dose: 0.4 mg - Objective Vital Signs: Vital Signs Temperature 98.6 F 09/05/17 06:00 Pulse Rate 60 09/05/17 06:00 Respiratory Rate 18 09/05/17 06:00 Blood Pressure 134/54 09/05/17 06:00 O2 Sat by Pulse Oximetry (%) 97 09/04/17 21:00 Constitutional: Yes: No Distress Cardiovascular: Yes: Regular Rate and Rhythm Respiratory: Yes: Other (decreased breath sounds at bases) Gastrointestinal: Yes: Soft Edema: No Neurological: Yes: Alert Labs: CBC, BMP 09/02/17 06:20 09/02/17 06:20 Assessment/Plan 72 year-old man with the history of hypertension, hyperlipidemia, hyperthyroid, coronary artery disease status post CABG 2011, paroxysmal atrial fibrillation on Eliquis, nuclear stress test within last few weeks in office showed no ischemia and normal LVEF admitted with fever, confusion, atypical chest pain. Chest pain-atypical, unlikely ACS, h/o CAD s/p CABG. Likely due to PNA and initial early sepsis -cardiac enzymes not significantly elevated and trended down. -nuclear stress test done in office 2 weeks ago showed normal perfusion no ischemia normal LVEF -echo 10/2016 in office showed normal LV systolic function -no additional inpatient cardiac work up needed at this time Pafib-currently NSR -cont home meds including eliquis and toprol. Eliquis should be BID
[2017-09-05] MEDS: TAMSULOSIN HCL 0.4 MG CAP.ER.24H (FP) PO SCH (10:17)
[2017-09-05] MEDS: metoPROLOL SUCCINATE 25 MG TAB.SR.24H (FP) PO SCH (10:18)
[2017-09-05] MEDS: APIXABAN 5 MG TABLET PO SCH ×2 (10:18→21:22)
--- NOTE | 2017-09-05 10:40 | PN ---
Progress Note (short form) - Note Progress Note: PULMONARY VSS/AFEBRILE ANICTERIC SCATTERED MINIMAL RHONCHI S1S2 BS+ NO EDEMA LABS/MEDS/NOTES/IMAGES REVIEWED (1) Pneumonia Code(s): J18.9 - PNEUMONIA, UNSPECIFIED ORGANISM (2) Abdominal pain Code(s): R10.9 - UNSPECIFIED ABDOMINAL PAIN (3) Chronic pancreatitis Code(s): K86.1 - OTHER CHRONIC PANCREATITIS Assessment/Plan CONTINUE ANTIBIOTICS/O2 SUPPLEMENTATION/BRONCHODILATORS CT CHEST ORDERED CONSIDER GI EVAL FOR HICCOUGHS SINCE ADMISSION CARDIO NOTES REVIEWED R JESUS MUÑOZ Problem List - Problems (1) Pneumonia Code(s): J18.9 - PNEUMONIA, UNSPECIFIED ORGANISM (2) Abdominal pain Code(s): R10.9 - UNSPECIFIED ABDOMINAL PAIN (3) Chronic pancreatitis Code(s): K86.1 - OTHER CHRONIC PANCREATITIS
--- NOTE | 2017-09-05 12:32 | PN ---
Progress Note, Physician History of Present Illness: patient has remained relatively afebrile cx reports noted will send a stat cbc - Current Medication List Current Medications: Active Medications Acetaminophen (Tylenol -) 650 mg PO Q4H PRN PRN Reason: PAIN LEVEL 4 - 6 Last Admin: 09/04/17 14:18 Dose: 650 mg Apixaban (Eliquis -) 5 mg PO BID [facility] Last Admin: 09/05/17 10:18 Dose: 5 mg Piperacillin Sod/Tazobactam (Sod 3.375 gm/ Dextrose) 50 mls @ 100 mls/hr IVPB Q8H-IV [facility] PRN Reason: Protocol Last Admin: 09/05/17 11:49 Dose: 100 mls/hr Latanoprost (Xalatan 0.005% Eye Drops -) 1 drop OU HS [facility] Last Admin: 09/04/17 23:10 Dose: 1 drop Metoprolol Succinate (Toprol Xl -) 25 mg PO DAILY [facility] Last Admin: 09/05/17 10:18 Dose: 25 mg Tamsulosin HCl (Flomax -) 0.4 mg PO DAILY@0830 [facility] Last Admin: 09/05/17 10:17 Dose: 0.4 mg - Objective Vital Signs: Vital Signs Temperature 98.6 F 09/05/17 06:00 Pulse Rate 60 09/05/17 06:00 Respiratory Rate 18 09/05/17 06:00 Blood Pressure 134/54 09/05/17 06:00 O2 Sat by Pulse Oximetry (%) 97 09/04/17 21:00 Constitutional: Yes: No Distress, Calm Cardiovascular: Yes: Regular Rate and Rhythm Respiratory: Yes: Regular, Poor Air Entry, Rhonchi Gastrointestinal: Yes: Normal Bowel Sounds, Soft Musculoskeletal: Yes: WNL Extremities: Yes: Other Neurological: Yes: Alert, Oriented Psychiatric: Yes: Alert, Oriented Labs: CBC, BMP 09/02/17 06:20 09/02/17 06:20 Assessment/Plan pna fever ams weakness plan continue zosyn will order a stat cbc monitor wbc ct scan is ordered by pul will await imaging studies reports
[2017-09-05 13:05] LABS: HEMATOCRIT 34.6 % (35.4-49); MCH 20.8 pg (25.7-33.7); MCHC 31.7 g/dl (32.0-35.9); MEAN CELL VOLUME 65.5 fl (80-96); MEAN PLT VOLUME 9.7 fl (7.5-11.1); PLATELET COUNT 274 K/MM3 (134-434); RBC 5.28 M/mm3 (4.00-5.60); RDW 48.9 % (11.9-15.9); WHITE BLOOD COUNT 7.8 K/mm3 (4.0-10.0)
[2017-09-05] MEDS: PROCHLORPERAZINE MALEATE 5 MG TABLET PO PRN (19:51)
[2017-09-05] MEDS: LATANOPROST 0.005% OPHTH SOLN 2.5ML BOTTLE OU SCH (21:22)
--- NOTE | 2017-09-05 22:00 | PN ---
Progress Note, Physician History of Present Illness: Pt still with hiccups - Current Medication List Current Medications: Active Medications Acetaminophen (Tylenol -) 650 mg PO Q4H PRN PRN Reason: PAIN LEVEL 4 - 6 Last Admin: 09/04/17 14:18 Dose: 650 mg Apixaban (Eliquis -) 5 mg PO BID [facility] Last Admin: 09/05/17 21:22 Dose: 5 mg Piperacillin Sod/Tazobactam (Sod 3.375 gm/ Dextrose) 50 mls @ 100 mls/hr IVPB Q8H-IV [facility] PRN Reason: Protocol Last Admin: 09/05/17 19:17 Dose: 100 mls/hr Latanoprost (Xalatan 0.005% Eye Drops -) 1 drop OU HS [facility] Last Admin: 09/05/17 21:22 Dose: 1 drop Metoprolol Succinate (Toprol Xl -) 25 mg PO DAILY [facility] Last Admin: 09/05/17 10:18 Dose: 25 mg Prochlorperazine Maleate (Compazine -) 10 mg PO Q6H PRN PRN Reason: HICCUPS Last Admin: 09/05/17 19:51 Dose: 10 mg Tamsulosin HCl (Flomax -) 0.4 mg PO DAILY@0830 [facility] Last Admin: 09/05/17 10:17 Dose: 0.4 mg - Objective Vital Signs: Vital Signs Temperature 98.1 F 09/05/17 17:06 Pulse Rate 73 09/05/17 17:06 Respiratory Rate 20 09/05/17 17:06 Blood Pressure 118/57 09/05/17 17:06 O2 Sat by Pulse Oximetry (%) 97 09/05/17 10:00 HENT: Yes: WNL Neck: Yes: WNL, Supple Cardiovascular: Yes: WNL, Regular Rate and Rhythm Respiratory: Yes: Diminished Gastrointestinal: Yes: WNL, Normal Bowel Sounds, Soft Labs: CBC, BMP 09/05/17 12:50 09/02/17 06:20 Problem List - Problems (1) Pneumonia Assessment/Plan: Cont IV zithro/zosyn WBC is normal Cont duoneb nebulizers Code(s): J18.9 - PNEUMONIA, UNSPECIFIED ORGANISM (2) A-fib Assessment/Plan: Heart rate controlled Elevated troponin wc is trending down ?Demand ischemia Cont eliquis/toprol Code(s): I48.91 - UNSPECIFIED ATRIAL FIBRILLATION (3) HTN (hypertension) Code(s): I10 - ESSENTIAL (PRIMARY) HYPERTENSION (4) BPH (benign prostatic hyperplasia) Assessment/Plan: Cont flomax Code(s): N40.0 - BENIGN PROSTATIC HYPERPLASIA WITHOUT LOWER URINRY TRACT SYMP (5) Intractable hiccups Assessment/Plan: Cont compazine Will get GI consult Code(s): R06.6 - HICCOUGH
[2017-09-06] MEDS ORDERED: PT OWN MED DRAWER 7, Y5N ONE ×4 (02:01→20:25)
[2017-09-06] MEDS: PIPERACILLIN/TAZOB 3.375 GM 3.375 GM in DEXTROSE 5%-WATER - 50 ML IVPB SCH ×3 (02:05→17:40)
[2017-09-06] MEDS: PROCHLORPERAZINE MALEATE 5 MG TABLET PO PRN ×3 (02:10→22:28)
[2017-09-06] MEDS: metoPROLOL SUCCINATE 25 MG TAB.SR.24H (FP) PO SCH (09:30)
[2017-09-06] MEDS: APIXABAN 5 MG TABLET PO SCH ×2 (09:30→22:29)
[2017-09-06] MEDS: TAMSULOSIN HCL 0.4 MG CAP.ER.24H (FP) PO SCH (09:30)
--- NOTE | 2017-09-06 11:38 | PN ---
Progress Note, Physician History of Present Illness: feels better afebrile doing well - Current Medication List Current Medications: Active Medications Acetaminophen (Tylenol -) 650 mg PO Q4H PRN PRN Reason: PAIN LEVEL 4 - 6 Last Admin: 09/04/17 14:18 Dose: 650 mg Apixaban (Eliquis -) 5 mg PO BID [facility] Last Admin: 09/06/17 09:30 Dose: 5 mg Piperacillin Sod/Tazobactam (Sod 3.375 gm/ Dextrose) 50 mls @ 100 mls/hr IVPB Q8H-IV [facility] PRN Reason: Protocol Last Admin: 09/06/17 09:30 Dose: 100 mls/hr Latanoprost (Xalatan 0.005% Eye Drops -) 1 drop OU HS [facility] Last Admin: 09/05/17 21:22 Dose: 1 drop Metoprolol Succinate (Toprol Xl -) 25 mg PO DAILY [facility] Last Admin: 09/06/17 09:30 Dose: 25 mg Prochlorperazine Maleate (Compazine -) 10 mg PO Q6H PRN PRN Reason: HICCUPS Last Admin: 09/06/17 09:32 Dose: 10 mg Tamsulosin HCl (Flomax -) 0.4 mg PO DAILY@0830 [facility] Last Admin: 09/06/17 09:30 Dose: 0.4 mg - Objective Vital Signs: Vital Signs Temperature 97.4 F L 09/06/17 10:00 Pulse Rate 64 09/06/17 10:00 Respiratory Rate 20 09/06/17 10:00 Blood Pressure 138/63 09/06/17 10:00 O2 Sat by Pulse Oximetry (%) 95 09/06/17 10:00 Constitutional: Yes: No Distress, Calm Cardiovascular: Yes: Regular Rate and Rhythm Respiratory: Yes: Regular, CTA Bilaterally Gastrointestinal: Yes: Normal Bowel Sounds, Soft Musculoskeletal: Yes: WNL Extremities: Yes: Other Neurological: Yes: Alert, Oriented Psychiatric: Yes: Alert, Oriented Labs: CBC, BMP 09/05/17 12:50 09/02/17 06:20 Assessment/Plan pna fever ams weakness wbc has normalized plan continue zosyn stop zosyn after todays dose rest continue current mgmt
--- NOTE | 2017-09-06 15:18 | PN ---
Progress Note, Physician History of Present Illness: PULMONARY ALERT,NAD,-CP,-SOB,-COUGH. CHEST CT -INFILTRATES,-MASSES,+ EXTENSIVE COPD CHANGES - Current Medication List Current Medications: Active Medications Acetaminophen (Tylenol -) 650 mg PO Q4H PRN PRN Reason: PAIN LEVEL 4 - 6 Last Admin: 09/04/17 14:18 Dose: 650 mg Apixaban (Eliquis -) 5 mg PO BID [facility] Last Admin: 09/06/17 09:30 Dose: 5 mg Piperacillin Sod/Tazobactam (Sod 3.375 gm/ Dextrose) 50 mls @ 100 mls/hr IVPB Q8H-IV PENNY PRN Reason: Protocol Last Admin: 09/06/17 09:30 Dose: 100 mls/hr Latanoprost (Xalatan 0.005% Eye Drops -) 1 drop OU HS [facility] Last Admin: 09/05/17 21:22 Dose: 1 drop Metoprolol Succinate (Toprol Xl -) 25 mg PO DAILY [facility] Last Admin: 09/06/17 09:30 Dose: 25 mg Prochlorperazine Maleate (Compazine -) 10 mg PO Q6H PRN PRN Reason: HICCUPS Last Admin: 09/06/17 09:32 Dose: 10 mg Tamsulosin HCl (Flomax -) 0.4 mg PO DAILY@0830 [facility] Last Admin: 09/06/17 09:30 Dose: 0.4 mg - Objective Vital Signs: Vital Signs Temperature 97.4 F L 09/06/17 10:00 Pulse Rate 64 09/06/17 10:00 Respiratory Rate 20 09/06/17 10:00 Blood Pressure 138/63 09/06/17 10:00 O2 Sat by Pulse Oximetry (%) 95 09/06/17 10:00 Constitutional: Yes: Well Nourished, Calm Eyes: Yes: WNL HENT: Yes: WNL Neck: Yes: WNL Cardiovascular: Yes: Regular Rate and Rhythm, S1, S2 Respiratory: Yes: CTA Bilaterally Gastrointestinal: Yes: Normal Bowel Sounds, Soft Extremities: Yes: WNL Edema: No Labs: CBC, BMP Problem List - Problems (1) Tobacco abuse Code(s): Z72.0 - TOBACCO USE (2) HTN (hypertension) Code(s): I10 - ESSENTIAL (PRIMARY) HYPERTENSION (3) Tobacco abuse counseling Code(s): Z71.6 - TOBACCO ABUSE COUNSELING Assessment/Plan (1) Pneumonia Code(s): J18.9 - PNEUMONIA, UNSPECIFIED ORGANISM (2) Abdominal pain Code(s): R10.9 - UNSPECIFIED ABDOMINAL PAIN (3) Chronic pancreatitis Code(s): K86.1 - OTHER CHRONIC PANCREATITIS 4 URI 5 PAF 6 ASHD Assessment/Plan ANTIBIOTICS PER ID O2 SUPPLEMENTATION/BRONCHODILATORS NICODERM PATCH YEARLY LOW DOSE CHEST CT FOR LUNG CANCER SCREENING SMOKING CESSATION COUNSELED DR YOUNG Problem List - Problems (1) Pneumonia Code(s): J18.9 - PNEUMONIA, UNSPECIFIED ORGANISM (2) Abdominal pain Code(s): R10.9 - UNSPECIFIED ABDOMINAL PAIN (3) Chronic pancreatitis Code(s): K86.1 - OTHER CHRONIC PANCREATITIS
[2017-09-06] MEDS: NICOTINE 21 MG/24 HOURS TOPICAL PATCH TD SCH (16:13)
--- NOTE | 2017-09-06 19:39 | PN ---
Progress Note, Physician History of Present Illness: No new complaints - Current Medication List Current Medications: Active Medications Acetaminophen (Tylenol -) 650 mg PO Q4H PRN PRN Reason: PAIN LEVEL 4 - 6 Last Admin: 09/04/17 14:18 Dose: 650 mg Apixaban (Eliquis -) 5 mg PO BID [facility] Last Admin: 09/06/17 09:30 Dose: 5 mg Piperacillin Sod/Tazobactam (Sod 3.375 gm/ Dextrose) 50 mls @ 100 mls/hr IVPB Q8H-IV PENNY PRN Reason: Protocol Last Admin: 09/06/17 17:40 Dose: 100 mls/hr Latanoprost (Xalatan 0.005% Eye Drops -) 1 drop OU HS [facility] Last Admin: 09/05/17 21:22 Dose: 1 drop Metoprolol Succinate (Toprol Xl -) 25 mg PO DAILY [facility] Last Admin: 09/06/17 09:30 Dose: 25 mg Nicotine (Nicoderm Patch -) 21 mg TD DAILY [facility] Last Admin: 09/06/17 16:13 Dose: 21 mg Prochlorperazine Maleate (Compazine -) 10 mg PO Q6H PRN PRN Reason: HICCUPS Last Admin: 09/06/17 09:32 Dose: 10 mg Tamsulosin HCl (Flomax -) 0.4 mg PO DAILY@0830 [facility] Last Admin: 09/06/17 09:30 Dose: 0.4 mg - Objective Vital Signs: Vital Signs Temperature 97.9 F 09/06/17 15:20 Pulse Rate 64 09/06/17 15:20 Respiratory Rate 20 09/06/17 15:20 Blood Pressure 146/64 09/06/17 15:20 O2 Sat by Pulse Oximetry (%) 95 09/06/17 10:00 Neck: Yes: WNL, Supple Cardiovascular: Yes: WNL, Regular Rate and Rhythm Respiratory: Yes: WNL, Regular, CTA Bilaterally Gastrointestinal: Yes: WNL, Normal Bowel Sounds, Soft Labs: CBC, BMP 09/05/17 12:50 09/02/17 06:20 Problem List - Problems (1) Pneumonia Assessment/Plan: Cont IV zosyn wc will be dc'ed after tomorrow WBC is normal Cont duoneb nebulizers PT eval Code(s): J18.9 - PNEUMONIA, UNSPECIFIED ORGANISM (2) A-fib Assessment/Plan: Heart rate controlled Elevated troponin wc is trending down ?Demand ischemia Cont eliquis/toprol Code(s): I48.91 - UNSPECIFIED ATRIAL FIBRILLATION (3) HTN (hypertension) Code(s): I10 - ESSENTIAL (PRIMARY) HYPERTENSION (4) BPH (benign prostatic hyperplasia) Assessment/Plan: Cont flomax Code(s): N40.0 - BENIGN PROSTATIC HYPERPLASIA WITHOUT LOWER URINRY TRACT SYMP (5) Intractable hiccups Assessment/Plan: Cont compazine Code(s): R06.6 - HICCOUGH
[2017-09-06] MEDS: LATANOPROST 0.005% OPHTH SOLN 2.5ML BOTTLE OU SCH (22:29)
[2017-09-07] MEDS ORDERED: PT OWN MED DRAWER 7, Y5N ONE ×2 (01:39→08:51)
[2017-09-07] MEDS: PIPERACILLIN/TAZOB 3.375 GM 3.375 GM in DEXTROSE 5%-WATER - 50 ML IVPB SCH ×2 (01:51→09:00)
[2017-09-07 07:52] LABS: BASO % 0.7 % (0-2.0); EOS % 1.7 % (0-4.5); HEMATOCRIT 30.5 % (35.4-49); LYMPH % 33.2 % (8-40); MCH 21.3 pg (25.7-33.7); MCHC 32.8 g/dl (32.0-35.9); MEAN CELL VOLUME 64.9 fl (80-96); MEAN PLT VOLUME 9.7 fl (7.5-11.1); MONO % 11.9 % (3.8-10.2); NEUT % 52.5 % (42.8-82.8); PLATELET COUNT 262 K/MM3 (134-434); RDW 48.2 % (11.9-15.9); WHITE BLOOD COUNT 7.9 K/mm3 (4.0-10.0)
[2017-09-07 08:03] LABS: CHLORIDE 104 mmol/L (98-107); POTASSIUM 3.8 mmol/L (3.5-5.1); SODIUM 140 mmol/L (136-145)
[2017-09-07 08:17] LABS: ALK PHOS 66 U/L (45-117); ANION GAP 11 (8-16); BILIRUBIN,TOTAL 1.3 mg/dL (0.2-1.0); BLOOD UREA NITROGEN 12 mg/dL (7-18); CALCIUM 8.5 mg/dL (8.5-10.1); CO2 25 mmol/L (21-32); CREATININE 0.8 mg/dL (0.7-1.3); GLUCOSE,RANDOM 87 mg/dL (74-106); SGOT/AST 32 U/L (15-37); SGPT/ALT 41 U/L (12-78); TOT PROT 6.9 g/dl (6.4-8.2)
[2017-09-07 08:54] LABS: ADD RBC MORPHOLOGY YES
[2017-09-07] MEDS: APIXABAN 5 MG TABLET PO SCH (09:00)
[2017-09-07] MEDS: NICOTINE 21 MG/24 HOURS TOPICAL PATCH TD SCH (09:00)
[2017-09-07] MEDS: metoPROLOL SUCCINATE 25 MG TAB.SR.24H (FP) PO SCH (09:00)
[2017-09-07] MEDS: TAMSULOSIN HCL 0.4 MG CAP.ER.24H (FP) PO SCH (09:00)
--- NOTE | 2017-09-07 10:00 | PN ---
Progress Note, Physician History of Present Illness: stable no complaints afebrile says doing well - Current Medication List Current Medications: Active Medications Acetaminophen (Tylenol -) 650 mg PO Q4H PRN PRN Reason: PAIN LEVEL 4 - 6 Last Admin: 09/04/17 14:18 Dose: 650 mg Apixaban (Eliquis -) 5 mg PO BID [facility] Last Admin: 09/07/17 09:00 Dose: 5 mg Piperacillin Sod/Tazobactam (Sod 3.375 gm/ Dextrose) 50 mls @ 100 mls/hr IVPB Q8H-IV PENNY PRN Reason: Protocol Last Admin: 09/07/17 09:00 Dose: 100 mls/hr Latanoprost (Xalatan 0.005% Eye Drops -) 1 drop OU HS [facility] Last Admin: 09/06/17 22:29 Dose: 1 drop Metoprolol Succinate (Toprol Xl -) 25 mg PO DAILY [facility] Last Admin: 09/07/17 09:00 Dose: 25 mg Nicotine (Nicoderm Patch -) 21 mg TD DAILY [facility] Last Admin: 09/07/17 09:00 Dose: 21 mg Prochlorperazine Maleate (Compazine -) 10 mg PO Q6H PRN PRN Reason: HICCUPS Last Admin: 09/06/17 22:28 Dose: 10 mg Tamsulosin HCl (Flomax -) 0.4 mg PO DAILY@0830 [facility] Last Admin: 09/07/17 09:00 Dose: 0.4 mg - Objective Vital Signs: Vital Signs Temperature 98.3 F 09/07/17 05:00 Pulse Rate 58 L 09/07/17 05:00 Respiratory Rate 20 09/07/17 05:00 Blood Pressure 136/75 09/07/17 05:00 O2 Sat by Pulse Oximetry (%) 95 09/06/17 21:00 Constitutional: Yes: No Distress, Calm Cardiovascular: Yes: S1, S2 Respiratory: Yes: Regular, CTA Bilaterally Gastrointestinal: Yes: Normal Bowel Sounds, Soft Musculoskeletal: Yes: WNL Extremities: Yes: Other Neurological: Yes: Alert, Oriented Psychiatric: Yes: Alert, Oriented Labs: CBC, BMP 09/07/17 06:00 09/07/17 06:00 - ....Imaging Chest X-ray: Report Reviewed, Image Reviewed Assessment/Plan Problem List - Problems (1) Tobacco abuse Code(s): Z72.0 - TOBACCO USE (2) HTN (hypertension) Code(s): I10 - ESSENTIAL (PRIMARY) HYPERTENSION (3) Tobacco abuse counseling Code(s): Z71.6 - TOBACCO ABUSE COUNSELING Assessment/Plan (1) Pneumonia Code(s): J18.9 - PNEUMONIA, UNSPECIFIED ORGANISM (2) Abdominal pain Code(s): R10.9 - UNSPECIFIED ABDOMINAL PAIN (3) Chronic pancreatitis Code(s): K86.1 - OTHER CHRONIC PANCREATITIS (4) URI (5) PAFib (6) ASHD plan will stop all abx rest continue current mgmt patient stable
--- NOTE | 2017-09-07 10:18 | PN ---
Progress Note, Physician Chief Complaint: clinically appears much improved. - Current Medication List Current Medications: Active Medications Acetaminophen (Tylenol -) 650 mg PO Q4H PRN PRN Reason: PAIN LEVEL 4 - 6 Last Admin: 09/04/17 14:18 Dose: 650 mg Apixaban (Eliquis -) 5 mg PO BID [facility] Last Admin: 09/07/17 09:00 Dose: 5 mg Piperacillin Sod/Tazobactam (Sod 3.375 gm/ Dextrose) 50 mls @ 100 mls/hr IVPB Q8H-IV PENNY PRN Reason: Protocol Last Admin: 09/07/17 09:00 Dose: 100 mls/hr Latanoprost (Xalatan 0.005% Eye Drops -) 1 drop OU HS [facility] Last Admin: 09/06/17 22:29 Dose: 1 drop Metoprolol Succinate (Toprol Xl -) 25 mg PO DAILY [facility] Last Admin: 09/07/17 09:00 Dose: 25 mg Nicotine (Nicoderm Patch -) 21 mg TD DAILY [facility] Last Admin: 09/07/17 09:00 Dose: 21 mg Prochlorperazine Maleate (Compazine -) 10 mg PO Q6H PRN PRN Reason: HICCUPS Last Admin: 09/06/17 22:28 Dose: 10 mg Tamsulosin HCl (Flomax -) 0.4 mg PO DAILY@0830 [facility] Last Admin: 09/07/17 09:00 Dose: 0.4 mg - Objective Vital Signs: Vital Signs Temperature 98.3 F 09/07/17 05:00 Pulse Rate 58 L 09/07/17 05:00 Respiratory Rate 20 09/07/17 05:00 Blood Pressure 136/75 09/07/17 05:00 O2 Sat by Pulse Oximetry (%) 95 09/06/17 21:00 Constitutional: Yes: No Distress, Calm Cardiovascular: Yes: Regular Rate and Rhythm Respiratory: Yes: CTA Bilaterally (no rales or wheezing) Gastrointestinal: Yes: Soft Edema: No Neurological: Yes: Alert, Oriented Labs: CBC, BMP 09/07/17 06:00 09/07/17 06:00 Laboratory Tests 09/01/17 09/02/17 09/07/17 21:10 06:20 06:00 WBC 7.9 Hgb 10.0 L Plt Count 262 Sodium Potassium BUN Creatinine Creatine Kinase 120 140 Troponin I 0.12 H D 0.07 H D 09/07/17 06:00 WBC Hgb Plt Count Sodium 140 Potassium 3.8 BUN 12 D Creatinine 0.8 Creatine Kinase Troponin I Assessment/Plan Assessment/Plan 72 year-old man with the history of hypertension, hyperlipidemia, hyperthyroid, coronary artery disease status post CABG 2011, paroxysmal atrial fibrillation on Eliquis, nuclear stress test within last few weeks in office showed no ischemia and normal LVEF admitted with fever, confusion, atypical chest pain. Chest pain-atypical, unlikely ACS, h/o CAD s/p CABG. Likely due to PNA and initial early sepsis -cardiac enzymes not significantly elevated and trended down. -nuclear stress test done in office 2 weeks ago showed normal perfusion no ischemia normal LVEF -echo 10/2016 in office showed normal LV systolic function -no additional inpatient cardiac work up needed at this time Pafib-currently NSR -cont home meds including eliquis and toprol.
[2017-09-07 10:38] VITALS: BP 145/80; PULSE 70; TEMP 98.4
--- NOTE | 2017-09-07 10:44 | PN ---
Progress Note (short form) - Note Progress Note: Resting in NAD. No CP or SOB. No acute events. Intake & Output 09/04/17 09/05/17 09/06/17 09/07/17 23:59 23:59 23:59 23:59 Intake Total 300 350 300 Output Total 400 Balance 300 -50 300 Last Vital Signs Temp Pulse Resp BP Pulse Ox 98.3 F 58 L 20 136/75 95 09/07/17 05:00 09/07/17 05:00 09/07/17 05:00 09/07/17 05:00 09/06/17 21:00 Active Medications Acetaminophen (Tylenol -) 650 mg PO Q4H PRN PRN Reason: PAIN LEVEL 4 - 6 Last Admin: 09/04/17 14:18 Dose: 650 mg Apixaban (Eliquis -) 5 mg PO BID [facility] Last Admin: 09/07/17 09:00 Dose: 5 mg Piperacillin Sod/Tazobactam (Sod 3.375 gm/ Dextrose) 50 mls @ 100 mls/hr IVPB Q8H-IV [facility]ENNY PRN Reason: Protocol Last Admin: 09/07/17 09:00 Dose: 100 mls/hr Latanoprost (Xalatan 0.005% Eye Drops -) 1 drop OU HS [facility] Last Admin: 09/06/17 22:29 Dose: 1 drop Metoprolol Succinate (Toprol Xl -) 25 mg PO DAILY [facility] Last Admin: 09/07/17 09:00 Dose: 25 mg Nicotine (Nicoderm Patch -) 21 mg TD DAILY [facility] Last Admin: 09/07/17 09:00 Dose: 21 mg Prochlorperazine Maleate (Compazine -) 10 mg PO Q6H PRN PRN Reason: HICCUPS Last Admin: 09/06/17 22:28 Dose: 10 mg Tamsulosin HCl (Flomax -) 0.4 mg PO DAILY@0830 [facility] Last Admin: 09/07/17 09:00 Dose: 0.4 mg Constitutional: Yes: Well Nourished, Calm Eyes: Yes: WNL HENT: Yes: WNL Neck: Yes: WNL Cardiovascular: Yes: Regular Rate and Rhythm, S1, S2 Respiratory: Yes: CTA Bilaterally Gastrointestinal: Yes: Normal Bowel Sounds, Soft Extremities: Yes: WNL Edema: No Labs: Laboratory Results - last 24 hr 09/07/17 09/07/17 06:00 06:00 WBC 7.9 RBC 4.70 Hgb 10.0 L Hct 30.5 L MCV 64.9 L MCH 21.3 L MCHC 32.8 RDW 48.2 H Plt Count 262 MPV 9.7 Neutrophils % 52.5 D Lymphocytes % 33.2 D Monocytes % 11.9 H D Eosinophils % 1.7 D Basophils % 0.7 Sodium 140 Potassium 3.8 Chloride 104 Carbon Dioxide 25 Anion Gap 11 BUN 12 D Creatinine 0.8 Creat Clearance w eGFR > 60 Random Glucose 87 Calcium 8.5 Total Bilirubin 1.3 H AST 32 D ALT 41 D Alkaline Phosphatase 66 Total Protein 6.9 Albumin 3.0 L Problem List - Problems (1) Tobacco abuse Code(s): Z72.0 - TOBACCO USE (2) HTN (hypertension) Code(s): I10 - ESSENTIAL (PRIMARY) HYPERTENSION (3) Tobacco abuse counseling Code(s): Z71.6 - TOBACCO ABUSE COUNSELING Assessment/Plan (1) Pneumonia Code(s): J18.9 - PNEUMONIA, UNSPECIFIED ORGANISM (2) Abdominal pain Code(s): R10.9 - UNSPECIFIED ABDOMINAL PAIN (3) Chronic pancreatitis Code(s): K86.1 - OTHER CHRONIC PANCREATITIS (4) URI (5) PAFib (6) ASHD Assessment/Plan ANTIBIOTICS PER ID O2 SUPPLEMENTATION/BRONCHODILATORS NICODERM PATCH SMOKING CESSATION COUNSELED WOULD D/C ON LABA/LAMA COMBO INHALER DR FREDERICK
[2017-09-07 12:07] LABS: ANISOCYTOSIS 4+; MACROCYTOSIS 1+; OVALOCYTE 4+
[2017-09-07 12:08] LABS: TEAR DROP CELLS 2+
[2017-09-07 12:09] LABS: PLATELET ESTIMATE ADEQUATE
--- NOTE | 2017-09-07 20:58 | DS ---
Physical Examination Vital Signs: Vital Signs Temperature 98.4 F 09/07/17 10:00 Pulse Rate 70 09/07/17 10:00 Respiratory Rate 20 09/07/17 10:00 Blood Pressure 145/80 09/07/17 10:00 O2 Sat by Pulse Oximetry (%) 95 09/07/17 10:00 Neck: Yes: WNL, Supple Cardiovascular: Yes: WNL, Regular Rate and Rhythm Respiratory: Yes: WNL, Regular, CTA Bilaterally Gastrointestinal: Yes: WNL, Normal Bowel Sounds, Soft Labs: CBC, BMP 09/07/17 06:00 09/07/17 06:00 Discharge Summary Reason For Visit: UTI,PNEUMONIA Sepsis Pneumonia Altered mental status Metabolic encephalopathy HTN BPH AFib Intractable hiccups Hospital Course: Pt ihis 72 year old male with cardiac triple bypass (09/2012), HTN, HLD, BPH afib /flutter. The patient was admitted w/ rigors and urinary frequency. Pt was septic on admission and treated for UTI/pneumoia w/ IV antibxs. However urine culture was negative. Pt improved and was dc'ed home. Pt was followed by ID/ pulmonary Condition: Good - Instructions Diet, Activity, Other Instructions: 2 gram sodium diet See Dr Beaulieu this week Referrals: Hill Beaulieu MD [Primary Care Provider] - Disposition: HOME - Home Medications Comprehensive Discharge Medication List: Ambulatory Orders Apixaban [Eliquis] 5 mg PO DAILY 09/01/17 Latanoprost 0.005% Eye Drops [Xalatan 0.005% Eye Drops -] 1 drop OU HS 09/01/17 Metoprolol Succinate [Toprol XL -] 25 mg PO DAILY 09/01/17 Tamsulosin HCl [Flomax -] 0.4 mg PO DAILY 09/01/17 Apixaban [Eliquis -] 5 mg PO BID tablet 09/07/17 Prochlorperazine Maleate [Compazine -] 10 mg PO Q6H PRN #10 tablet 09/07/17
== END 2017-09-07 14:37 | disposition home or self-care (01) | DRG 871 ==
LOC: JER 07:24 → JERBED 11:23 → J5S 19:04 → J7W 09-04 14:21
PROVIDERS: ADMIT Internal Medicine; ATTEND Internal Medicine
DX: A41.9 Sepsis, unspecified organism (principal); J18.9 Pneumonia, unspecified organism; G93.41 Metabolic encephalopathy; N39.0 Urinary tract infection, site not specified; K86.1 Other chronic pancreatitis; E87.2 Acidosis; I10 Essential (primary) hypertension; E78.5 Hyperlipidemia, unspecified; Z95.1 Presence of aortocoronary bypass graft; F17.210 Nicotine dependence, cigarettes, uncomplicated; E78.00 Pure hypercholesterolemia, unspecified; I48.0 Paroxysmal atrial fibrillation; I25.10 Atherosclerotic heart disease of native coronary artery without angina pectoris; J44.9 Chronic obstructive pulmonary disease, unspecified; D64.9 Anemia, unspecified; N40.0 Benign prostatic hyperplasia without lower urinary tract symptoms; R07.89 Other chest pain; E05.90 Thyrotoxicosis, unspecified without thyrotoxic crisis or storm; R06.6 Hiccough; J06.9 Acute upper respiratory infection, unspecified
CPT/HCPCS: 36415; 70450-TC; 71045-TC-FY; 71250-TC; 80053; 81003; 81015; 82550; 83605; 83735; 83880; 84100; 84484; 85025; 85027; 87040; 87086; 87804; 93005; 93010; 97116-GP; 97161-GP; 99284-25; J0131; J7030

== ENCOUNTER 2019-03-19 23:34 | Emergency (ER) | payer OTHER ==
[2019-03-19 23:55] VITALS: BP 161/79; PULSE 66; TEMP 97.7; BMI 15.4
[2019-03-20] MEDS ORDERED: ALBUTEROL SO4 2.5/IPRATROPIUM 0.5 INH SOL 3 ML VIAL.NEB. NEB ONE (01:06)
--- NOTE | 2019-03-20 01:06 | PDOC ---
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 Patient states cough is nonproductive, dry which keeps him up at night. States has nasal congestion, (+ ) post nasal drip. Denies fever, chills, chest pain. No recent travel. No sick contact. No Flu shot this year. PMD: Dr. Beaulieu CARDIO: Kirsten PMHX: as above PSOCHX: (+) cig 1/2 PPD, no etoh, no drugs ALL: bactrim GENERAL/CONSTITUTIONAL: [No fever or chills. No weakness. No weight change.] HEAD, EYES, EARS, NOSE AND THROAT: [No change in vision. No ear pain or discharge. No sore throat.] CARDIOVASCULAR: [No chest pain or shortness of breath.] RESPIRATORY: [(+) cough, (-) wheezing, or hemoptysis.] GASTROINTESTINAL: [No nausea, vomiting, diarrhea or constipation. No rectal bleeding.] GENITOURINARY: [No dysuria, frequency, or change in urination.] MUSCULOSKELETAL: [No joint or muscle swelling or pain. No neck or back pain.] SKIN AND BREASTS: [No rash or easy bruising.] NEUROLOGIC: [No headache, vertigo, loss of consciousness, or loss of sensation.] PSYCHIATRIC: [No depression or anxiety.] ENDOCRINE: [No increased thirst. No abnormal weight change.] HEMATOLOGIC/LYMPHATIC: [No anemia, easy bleeding, or history of blood clots.] ALLERGIC/IMMUNOLOGIC: [No hives or skin allergy. No latex allergy.] GENERAL: [The patient is awake, alert, and fully oriented, in mild distress - coughing.] HEAD: [Normal with no signs of trauma.] EYES: [Pupils equal, round and reactive to light, extraocular movements intact, sclera anicteric, conjunctiva clear.] ENT: [Ears normal, nares patent, oropharynx clear without exudates. Moist mucous membranes.] NECK: [Normal range of motion, supple without lymphadenopathy, JVD, or masses.] LUNGS: [Breath sounds equal, clear to auscultation bilaterally. No wheezes, and no crackles.] HEART: [Regular rate and rhythm, normal S1 and S2 without murmur, rub.] ABDOMEN: [Soft, no tenderness, normoactive bowel sounds. No guarding, no rebound. No masses.] EXTREMITIES: [Normal range of motion, no edema. No clubbing or cyanosis. No cords, erythema, or tenderness.] NEUROLOGICAL: [Cranial nerves II through XII grossly intact. Normal speech, normal gait.] PSYCH: [Normal mood, normal affect.] SKIN: [Warm, Dry, normal turgor, no rashes or lesions noted.] Past History - Past Medical History Allergies/Adverse Reactions: Allergies Allergy/AdvReac Type Severity Reaction Status Date / Time sulfamethoxazole Allergy Severe Verified 03/19/19 23:55 [From Bactrim] trimethoprim [From Bactrim] Allergy Severe Verified 03/19/19 23:55 Home Medications: Ambulatory Orders Latanoprost 0.005% Eye Drops [Xalatan 0.005% Eye Drops -] 1 drop OU HS 09/01/17 Metoprolol Succinate [Toprol XL -] 25 mg PO DAILY 09/01/17 Apixaban [Eliquis -] 5 mg PO BID tablet 09/07/17 Aspirin [ASA -] 81 mg PO DAILY 11/02/18 Tamsulosin HCl [Flomax] 0.4 mg PO DAILY 11/02/18 Atorvastatin Calcium 20 mg PO HS 11/03/18 Dorzolamide 2% Eye Drop 1 drop OU HS 11/03/18 L. Acidophilus/Pectin, [place] [Acidophilus-Pectin Capsule] 100 mg PO BID Magnesium Oxide 400 400 mg PO DAILY 11/03/18 Pantoprazole Sodium [Protonix] 40 mg PO DAILY 11/03/18 Amlodipine Besylate [Norvasc -] 5 mg PO DAILY #30 tablet 11/08/18 Amox-Tr/K Cl [Augmentin 875-125mg Tablet -] 1 tab PO BID@0800,1730 #14 tablet Lipase/Protease/Amylase [Vikas Metcalf 36,000 Units Capsule] 1 cap PO TIDCM #90 capsule. 11/08/18 Pantoprazole Sodium [Protonix -] 40 mg PO DAILY #30 tablet.ec 11/08/18 Albuterol Sulfate Inhaler - [Ventolin HFA Inhaler -] 2 inh PO Q4H #1 inh Azithromycin [Zithromax -] 250 mg PO UTDICT #6 tab 03/20/19 Loratadine [Claritin] 10 mg PO DAILY #15 tablet 03/20/19 Anemia: No Asthma: Yes Cancer: No Cardiac Disorders: Yes (TRIPLE BYPASS 09/2012) CVA: No COPD: No CHF: No Dementia: No Diabetes: No GI Disorders: No Disorders: No HTN: Yes Hypercholesterolemia: Yes Liver Disease: No Seizures: No Thyroid Disease: Yes (hyper but resolved) - Surgical History Abdominal Surgery: No Appendectomy: No Cardiac Surgery: Yes (stents open heart sx 08/2012) Cholecystectomy: No Lung Surgery: No Neurologic Surgery: No Orthopedic Surgery: No - Immunization History Td Vaccination: (unknown) Immunization Up to Date: Yes (unknown) - Psycho Social/Smoking Cessation Hx Smoking Status: Yes Smoking History: Never smoked Years of Tobacco Use: 20 Have you smoked in the past 12 months: Yes Number of Cigarettes Smoked Daily: 1 If you are a former smoker, when did you quit?: 08/12/12 Cigars Per Day: 0 'Breaking Loose' booklet given: 03/20/14 Hx Alcohol Use: No Drug/Substance Use Hx: No Substance Use Type: None Hx Substance Use Treatment: No *Physical Exam - Vital Signs Last Vital Signs Temp Pulse Resp BP Pulse Ox 97.7 F 66 19 161/79 100 03/19/19 23:34 03/19/19 23:34 03/19/19 23:34 03/19/19 23:34 03/19/19 23:34 Medical Decision Making - Medical Decision Making 03/20/19 00:58 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 Patient states cough is nonproductive, dry which keeps him up at night. States has nasal congestion, (+ ) post nasal drip. Denies fever, chills, chest pain. No recent travel. No sick contact. No Flu shot this year. DDX: seasonal allergies, bronchitis, less likely pneumonia will get cxr, duo neb treatment claritin reassess 03/20/19 02:28 Patient feels improved. Has no stridor or wheezing. Chest x-ray reviewed no acute infiltrates. I discussed the physical exam findings, ancillary test results and final diagnoses with the patient. I answered all of the patient's questions. The patient was satisfied with the care received and felt comfortable with the discharge plan and treatment plan. The Patient agrees to follow up with the primary care physician within 24-72 hours. Discharge - Discharge Information Problems reviewed: Yes Clinical Impression/Diagnosis: Bronchitis Condition: Stable Disposition: HOME - Additional Discharge Information Prescriptions: Albuterol Sulfate Inhaler - [Ventolin HFA Inhaler -] 2 inh PO Q4H #1 inh Azithromycin [Zithromax -] 250 mg PO UTDICT #6 tab Loratadine [Claritin] 10 mg PO DAILY #15 tablet - Follow up/Referral Referrals: Hill Beaulieu MD [Primary Care Provider] - - Patient Discharge Instructions Patient Printed Discharge Instructions: DI for Acute Bronchitis Additional Instructions: Your Discharge Instructions: You must call primary care physician within 24 hours to arrange follow-up. Return to the Emergency Department with any new, persistent or worsening symptoms, for fever, chills, SOB, dizziness or any other concerning changes that may occur. - Post Discharge Activity
[2019-03-20] MEDS ORDERED: LORATADINE 10 MG TABLET PO ONE (01:08)
== END 2019-03-20 02:29 | disposition home or self-care (01) ==
LOC: JER 23:34
PROC: 3E0F7GC Introduction of Other Therapeutic Substance into Respiratory Tract, Via Natural or Artificial Opening (ICD-10-PCS; principal; 2019-03-19)
DX: J40 Bronchitis, not specified as acute or chronic (principal); J30.2 Other seasonal allergic rhinitis; I25.10 Atherosclerotic heart disease of native coronary artery without angina pectoris; I10 Essential (primary) hypertension; Z95.1 Presence of aortocoronary bypass graft; Z95.5 Presence of coronary angioplasty implant and graft; E78.00 Pure hypercholesterolemia, unspecified; E05.90 Thyrotoxicosis, unspecified without thyrotoxic crisis or storm; Z88.2 Allergy status to sulfonamides; Z79.01 Long term (current) use of anticoagulants; Z79.82 Long term (current) use of aspirin; Z87.09 Personal history of other diseases of the respiratory system
CPT/HCPCS: 71046-TC-FY; 94640; 99281-25

== ENCOUNTER 2020-05-12 02:13 | Emergency (ER) | payer OTHER ==
[2020-05-12 02:39] VITALS: BP 196/82; PULSE 63; TEMP 98.3; BMI 21.1
[2020-05-12] MEDS ORDERED: diphenhydrAMINE HCL 12.5 MG/5 ML UNIT-DOSE CUPS PO ONE (03:33)
[2020-05-12] MEDS ORDERED: CLINDAMYCIN HCL 300 MG CAPSULE PO ONE (03:35)
[2020-05-12] MEDS ORDERED: diphenhydrAMINE HCL 12.5 MG/5 ML BULK BOTTLE ONE (03:50)
[2020-05-12] MEDS ORDERED: CLINDAMYCIN HCL 150 MG CAPSULE (FP) ONE (03:51)
== END 2020-05-12 03:58 | disposition home or self-care (01) ==
LOC: JER 02:13
DX: K04.7 Periapical abscess without sinus (principal)
CPT/HCPCS: 99284-25

== ENCOUNTER 2021-04-09 15:31 | Inpatient (IN) | payer OTHER ==
[2021-04-09] MEDS ORDERED: ACETAMINOPHEN 1000 MG/100 ML VIAL IVPB ONE (17:34)
[2021-04-09] MEDS ORDERED: FAMOTIDINE 20 MG TABLET PO ONE (17:34)
[2021-04-09] MEDS ORDERED: MAG HYDROX/AL HYDROX/SIMETH 30 ML UNIT-DOSE CUP PO ONE (17:35)
[2021-04-09] MEDS ORDERED: MAG HYDROX/AL HYDROX/SIMETH 30 ML UNIT-DOSE CUP ONE (18:37)
[2021-04-09] MEDS ORDERED: FAMOTIDINE 20 MG TABLET ONE (18:37)
[2021-04-09] MEDS ORDERED: ACETAMINOPHEN INJECTION 100 ML IVPB ONE (18:37)
[2021-04-09 19:05] LABS: EPI CELLS 3 /uL (0-25.1); HYALINE CASTS 2 /uL (0-3.1); PH,URINE 5.5 (5.0-8.0); URINE APPEARANCE CLOUDY; URINE BACTERIA >9,000 /uL (0-1359); URINE BILIRUBIN NEGATIVE (NEGATIVE); URINE COLOR YELLOW; URINE GLUCOSE (UA) NEGATIVE (NEGATIVE); URINE KETONE TRACE (NEGATIVE); URINE LEUK ESTERASE 3+ (NEGATIVE); URINE NITRITE NEGATIVE (NEGATIVE); URINE PROTEIN TRACE (NEGATIVE); URINE RBC 34 /uL (0-23.9); URINE WBC 2657 /uL (0-25.8)
[2021-04-09 19:26] LABS: BASO % 1.2 % (0-2.0); EOS % 0.7 % (0-4.5); HEMATOCRIT 37.2 % (35.4-49); HEMOGLOBIN 11.9 GM/dL (11.7-16.9); LYMPH % 8.8 % (8-40); MCHC 31.9 g/dl (32.0-35.9); MEAN CELL VOLUME 60.8 fl (80-96); MEAN PLT VOLUME 8.9 fl (7.5-11.1); MONO % 4.6 % (3.8-10.2); NEUT % 84.7 % (42.8-82.8); PLATELET COUNT 325 10^3/uL (134-434); RBC 6.12 M/mm3 (4.00-5.60); WHITE BLOOD COUNT 19.4 K/mm3 (4.0-10.0)
[2021-04-09 19:39] LABS: MCH 19.4 pg (25.7-33.7)
[2021-04-09 19:52] LABS: CHLORIDE 108 mmol/L (98-107); SODIUM 139 mmol/L (136-145)
[2021-04-09 19:54] LABS: CALCIUM 9.4 mg/dL (8.5-10.1)
[2021-04-09 19:55] LABS: ALBUMIN 4.1 g/dl (3.4-5.0); ANION GAP 10 MMOL/L (8-16); BLOOD UREA NITROGEN 17.8 mg/dL (7-18); CO2 20 mmol/L (21-32); GLUCOSE,RANDOM 87 mg/dL (74-106)
[2021-04-09 19:58] LABS: CREATININE 1.2 mg/dL (0.55-1.3); SGOT/AST 24 U/L (15-37); SGPT/ALT 16 U/L (13-61)
[2021-04-09 20:00] LABS: BILIRUBIN,TOTAL 1.5 mg/dL (0.2-1)
[2021-04-09 20:01] LABS: ALK PHOS 101 U/L (45-117)
[2021-04-09] MEDS ORDERED: CEFTRIAXONE 1 GM in DEXTROSE 5%-WATER - 100 ML IVPB ONE (20:10)
[2021-04-09 20:51] LABS: ANISOCYTOSIS 3+; MACROCYTOSIS 0; OVALOCYTE 1+; PLATELET ESTIMATE NORMAL; TEAR DROP CELLS 1+
[2021-04-09] MEDS ORDERED: CEFTRIAXONE 1 GM/50 ML BAG ONE (21:00)
[2021-04-09 21:16] LABS: LIPASE 88 U/L (73-393)
[2021-04-10] MEDS ORDERED: ACETAMINOPHEN 325 MG TABLET (FP) PO PRN (01:41)
[2021-04-10 08:01] VITALS: BMI 20.7
[2021-04-10] MEDS ORDERED: DEXTROSE 5%-WATER - 50 ML IVPB ONE (09:44)
[2021-04-10] MEDS ORDERED: cefTRIAXone SODIUM 1 GM VIAL ONE (09:44)
[2021-04-10] MEDS: CEFTRIAXONE 1 GM in DEXTROSE 5%-WATER - 50 ML IVPB SCH (09:46)
[2021-04-10] MEDS: amLODIPine BESYLATE 5 MG TABLET (FP) PO SCH (09:47)
[2021-04-10] MEDS: ASPIRIN 81 MG CHEWABLE TABLETS PO SCH (09:47)
[2021-04-10] MEDS: metoPROLOL SUCCINATE 25 MG TAB.SR.24H (FP) PO SCH (09:47)
[2021-04-10] MEDS: PANTOPRAZOLE 40 MG TABLET PO SCH (09:47)
[2021-04-10] MEDS: MAGNESIUM OXIDE 400 MG TABLET (FP) PO SCH (09:47)
[2021-04-10] MEDS: APIXABAN 5 MG TABLET PO SCH ×2 (09:47→21:04)
[2021-04-10] MEDS: TAMSULOSIN HCL 0.4 MG CAP PO SCH (09:47)
[2021-04-10] MEDS: LIPASE/PROTEASE/AMYLASE 36,000 UNIT CAPSULE PO SCH ×3 (09:47→17:22)
[2021-04-10] MEDS ORDERED: PT OWN MED DRAWER 7, Y5N ONE (17:19)
[2021-04-10] MEDS: NICOTINE 21 MG/24 HOURS TOPICAL PATCH TD SCH (18:17)
[2021-04-10] MEDS: ATORVASTATIN CA 20 MG TABLET (FP) PO SCH (21:04)
[2021-04-10] MEDS: LATANOPROST 0.005% OPHTH SOLN 2.5ML BOTTLE OU SCH (22:00)
[2021-04-11] MEDS ORDERED: PT OWN MED DRAWER 7, Y5N ONE (08:06)
[2021-04-11] MEDS: TAMSULOSIN HCL 0.4 MG CAP PO SCH (08:27)
[2021-04-11] MEDS: LIPASE/PROTEASE/AMYLASE 36,000 UNIT CAPSULE PO SCH ×3 (08:27→17:17)
[2021-04-11 09:02] LABS: BASO % 0.2 % (0-2.0); EOS % 0.9 % (0-4.5); HEMATOCRIT 31.5 % (35.4-49); HEMOGLOBIN 10.1 GM/dL (11.7-16.9); LYMPH % 18.5 % (8-40); MEAN CELL VOLUME 60.9 fl (80-96); MEAN PLT VOLUME 10.6 fl (7.5-11.1); NEUT % 75.4 % (42.8-82.8); PLATELET COUNT 307 10^3/uL (134-434); RBC 5.17 M/mm3 (4.00-5.60); WHITE BLOOD COUNT 16.9 K/mm3 (4.0-10.0)
[2021-04-11 09:27] LABS: BLOOD UREA NITROGEN 22.8 mg/dL (7-18); CALCIUM 8.8 mg/dL (8.5-10.1); CREATININE 1.2 mg/dL (0.55-1.3)
[2021-04-11 09:28] LABS: BILIRUBIN,TOTAL 1.1 mg/dL (0.2-1); TOT PROT 7.4 g/dl (6.4-8.2)
[2021-04-11 09:29] LABS: ALBUMIN 3.1 g/dl (3.4-5.0)
[2021-04-11] MEDS ORDERED: DEXTROSE 5%-WATER - 50 ML IVPB ONE (09:40)
[2021-04-11] MEDS ORDERED: cefTRIAXone SODIUM 1 GM VIAL ONE (09:40)
[2021-04-11] MEDS: APIXABAN 5 MG TABLET PO SCH ×2 (09:43→21:47)
[2021-04-11] MEDS: metoPROLOL SUCCINATE 25 MG TAB.SR.24H (FP) PO SCH (09:43)
[2021-04-11] MEDS: NICOTINE 21 MG/24 HOURS TOPICAL PATCH TD SCH (09:43)
[2021-04-11] MEDS: ASPIRIN 81 MG CHEWABLE TABLETS PO SCH (09:43)
[2021-04-11] MEDS: PANTOPRAZOLE 40 MG TABLET PO SCH (09:44)
[2021-04-11] MEDS: MAGNESIUM OXIDE 400 MG TABLET (FP) PO SCH (09:44)
[2021-04-11] MEDS: amLODIPine BESYLATE 5 MG TABLET (FP) PO SCH (09:44)
[2021-04-11] MEDS: CEFTRIAXONE 1 GM in DEXTROSE 5%-WATER - 50 ML IVPB SCH (09:44)
[2021-04-11 10:07] LABS: MCH 19.5 pg (25.7-33.7)
[2021-04-11 11:08] LABS: PLATELET ESTIMATE NORMAL
[2021-04-11] MEDS: ATORVASTATIN CA 20 MG TABLET (FP) PO SCH (21:47)
[2021-04-11] MEDS: MELATONIN 5 MG TABLETS PO PRN (21:47)
[2021-04-11] MEDS: DORZOLAMIDE 2% HCL OPHTHALMIC SOLUTION 10 ML BOTTLE OU SCH (21:47)
[2021-04-11] MEDS: LATANOPROST 0.005% OPHTH SOLN 2.5ML BOTTLE OU SCH (21:48)
[2021-04-12 07:23] LABS: ALBUMIN 3.2 g/dl (3.4-5.0); CALCIUM 8.7 mg/dL (8.5-10.1)
[2021-04-12 07:28] LABS: BILIRUBIN,TOTAL 0.9 mg/dL (0.2-1); TOT PROT 7.2 g/dl (6.4-8.2)
[2021-04-12] MEDS ORDERED: PT OWN MED DRAWER 7, Y5N ONE ×2 (08:02→22:31)
[2021-04-12] MEDS: LIPASE/PROTEASE/AMYLASE 36,000 UNIT CAPSULE PO SCH ×3 (08:04→17:31)
[2021-04-12] MEDS: TAMSULOSIN HCL 0.4 MG CAP PO SCH (08:04)
[2021-04-12 08:23] LABS: BASO % 0.5 % (0-2.0); EOS % 1.9 % (0-4.5); HEMOGLOBIN 10.1 GM/dL (11.7-16.9); LYMPH % 22.8 % (8-40); MCHC 32.5 g/dl (32.0-35.9); MEAN CELL VOLUME 59.5 fl (80-96); MEAN PLT VOLUME 10.5 fl (7.5-11.1); NEUT % 69.8 % (42.8-82.8); RBC 5.21 M/mm3 (4.00-5.60); RDW 49.6 % (11.9-15.9); WHITE BLOOD COUNT 11.7 K/mm3 (4.0-10.0)
[2021-04-12 08:24] LABS: MCH 19.4 pg (25.7-33.7)
[2021-04-12] MEDS ORDERED: cefTRIAXone SODIUM 1 GM VIAL ONE (09:17)
[2021-04-12] MEDS ORDERED: DEXTROSE 5%-WATER - 50 ML IVPB ONE (09:17)
[2021-04-12] MEDS: MAGNESIUM OXIDE 400 MG TABLET (FP) PO SCH (09:24)
[2021-04-12] MEDS: amLODIPine BESYLATE 5 MG TABLET (FP) PO SCH (09:24)
[2021-04-12] MEDS: PANTOPRAZOLE 40 MG TABLET PO SCH (09:24)
[2021-04-12] MEDS: ASPIRIN 81 MG CHEWABLE TABLETS PO SCH (09:24)
[2021-04-12] MEDS: metoPROLOL SUCCINATE 25 MG TAB.SR.24H (FP) PO SCH (09:24)
[2021-04-12] MEDS: CEFTRIAXONE 1 GM in DEXTROSE 5%-WATER - 50 ML IVPB SCH (09:24)
[2021-04-12] MEDS: APIXABAN 5 MG TABLET PO SCH ×2 (09:24→22:33)
[2021-04-12] MEDS: NICOTINE 21 MG/24 HOURS TOPICAL PATCH TD SCH (09:24)
[2021-04-12 10:00] LABS: PLATELET ESTIMATE NORMAL
[2021-04-12 10:06] LABS: PLATELET COUNT 185 10^3/uL (134-434)
[2021-04-12] MEDS: DORZOLAMIDE 2% HCL OPHTHALMIC SOLUTION 10 ML BOTTLE OU SCH ×2 (10:28→22:34)
[2021-04-12] MEDS: MELATONIN 5 MG TABLETS PO PRN (22:34)
[2021-04-12] MEDS: LATANOPROST 0.005% OPHTH SOLN 2.5ML BOTTLE OU SCH (22:34)
[2021-04-12] MEDS: ATORVASTATIN CA 20 MG TABLET (FP) PO SCH (22:34)
[2021-04-13] MEDS ORDERED: PT OWN MED DRAWER 7, Y5N ONE (08:13)
[2021-04-13] MEDS ORDERED: DEXTROSE 5%-WATER - 50 ML IVPB ONE (09:11)
[2021-04-13] MEDS ORDERED: cefTRIAXone SODIUM 1 GM VIAL ONE (09:11)
[2021-04-13] MEDS: NICOTINE 21 MG/24 HOURS TOPICAL PATCH TD SCH (09:14)
[2021-04-13] MEDS: ASPIRIN 81 MG CHEWABLE TABLETS PO SCH (09:14)
[2021-04-13] MEDS: metoPROLOL SUCCINATE 25 MG TAB.SR.24H (FP) PO SCH (09:14)
[2021-04-13] MEDS: CEFTRIAXONE 1 GM in DEXTROSE 5%-WATER - 50 ML IVPB SCH (09:14)
[2021-04-13] MEDS: amLODIPine BESYLATE 5 MG TABLET (FP) PO SCH (09:14)
[2021-04-13] MEDS: DORZOLAMIDE 2% HCL OPHTHALMIC SOLUTION 10 ML BOTTLE OU SCH ×2 (09:14→21:16)
[2021-04-13] MEDS: PANTOPRAZOLE 40 MG TABLET PO SCH (09:14)
[2021-04-13] MEDS: APIXABAN 5 MG TABLET PO SCH ×2 (09:14→21:15)
[2021-04-13] MEDS: MAGNESIUM OXIDE 400 MG TABLET (FP) PO SCH (09:14)
[2021-04-13] MEDS: TAMSULOSIN HCL 0.4 MG CAP PO SCH (09:15)
[2021-04-13] MEDS: LIPASE/PROTEASE/AMYLASE 36,000 UNIT CAPSULE PO SCH ×3 (10:08→17:25)
[2021-04-13 10:28] LABS: BASO % 0.7 % (0-2.0); EOS % 4.3 % (0-4.5); HEMATOCRIT 32.8 % (35.4-49); HEMOGLOBIN 10.6 GM/dL (11.7-16.9); LYMPH % 36.6 % (8-40); MCHC 32.3 g/dl (32.0-35.9); MEAN CELL VOLUME 60.4 fl (80-96); MEAN PLT VOLUME 10.3 fl (7.5-11.1); MONO % 6.2 % (3.8-10.2); NEUT % 52.2 % (42.8-82.8); PLATELET COUNT 280 10^3/uL (134-434); RBC 5.43 M/mm3 (4.00-5.60); RDW 49.6 % (11.9-15.9); WHITE BLOOD COUNT 8.2 K/mm3 (4.0-10.0)
[2021-04-13 10:31] LABS: ALBUMIN 3.4 g/dl (3.4-5.0)
[2021-04-13 10:33] LABS: MCH 19.5 pg (25.7-33.7)
[2021-04-13 10:36] LABS: TOT PROT 7.7 g/dl (6.4-8.2)
[2021-04-13 11:21] LABS: ANISOCYTOSIS 3+; MACROCYTOSIS 0; OVALOCYTE 3+; PLATELET ESTIMATE NORMAL; TEAR DROP CELLS 2+
[2021-04-13] MEDS: LATANOPROST 0.005% OPHTH SOLN 2.5ML BOTTLE OU SCH (21:15)
[2021-04-13] MEDS: MELATONIN 5 MG TABLETS PO PRN (21:15)
[2021-04-13] MEDS: ATORVASTATIN CA 20 MG TABLET (FP) PO SCH (21:15)
[2021-04-14 05:56] VITALS: BP 142/62; PULSE 58; TEMP 98.3
[2021-04-14] MEDS ORDERED: PT OWN MED DRAWER 7, Y5N ONE (10:43)
[2021-04-14] MEDS: metoPROLOL SUCCINATE 25 MG TAB.SR.24H (FP) PO SCH (10:47)
[2021-04-14] MEDS: TAMSULOSIN HCL 0.4 MG CAP PO SCH (10:47)
[2021-04-14] MEDS: APIXABAN 5 MG TABLET PO SCH (10:47)
[2021-04-14] MEDS: PANTOPRAZOLE 40 MG TABLET PO SCH (10:47)
[2021-04-14] MEDS: DORZOLAMIDE 2% HCL OPHTHALMIC SOLUTION 10 ML BOTTLE OU SCH (10:47)
[2021-04-14] MEDS: LIPASE/PROTEASE/AMYLASE 36,000 UNIT CAPSULE PO SCH ×2 (10:47→11:59)
[2021-04-14] MEDS: NICOTINE 21 MG/24 HOURS TOPICAL PATCH TD SCH (10:47)
[2021-04-14] MEDS: MAGNESIUM OXIDE 400 MG TABLET (FP) PO SCH (10:47)
[2021-04-14] MEDS: amLODIPine BESYLATE 5 MG TABLET (FP) PO SCH (10:47)
[2021-04-14] MEDS: ASPIRIN 81 MG CHEWABLE TABLETS PO SCH (10:47)
== END 2021-04-14 14:57 | disposition home or self-care (01) | DRG 690 ==
LOC: JER 15:31 → JERBED 20:12 → J6S 04-10 06:42
PROVIDERS: ADMIT Internal Medicine; ATTEND Internal Medicine
DX: N39.0 Urinary tract infection, site not specified (principal); I10 Essential (primary) hypertension; I48.91 Unspecified atrial fibrillation; N40.0 Benign prostatic hyperplasia without lower urinary tract symptoms; Z95.1 Presence of aortocoronary bypass graft; J44.9 Chronic obstructive pulmonary disease, unspecified; Z79.01 Long term (current) use of anticoagulants; E78.5 Hyperlipidemia, unspecified; D64.9 Anemia, unspecified; I25.10 Atherosclerotic heart disease of native coronary artery without angina pectoris
CPT/HCPCS: 36415; 71046-TC-FY; 76705-TC; 80053; 81003; 82550; 83690; 84484; 85025; 87040; 87086; 87186; 93005; 93010; 97116-GP; 97162-GP; 99285-25; C9803; J0131; U0003; U0005

== ENCOUNTER 2021-05-09 08:58 | Inpatient (IN) | payer OTHER ==
[2021-05-09] MEDS ORDERED: ACETAMINOPHEN 1000 MG/100 ML VIAL IVPB ONE ×2 (09:03→14:03)
[2021-05-09] MEDS ORDERED: ACETAMINOPHEN INJECTION 100 ML IVPB ONE ×2 (09:56→14:09)
[2021-05-09 10:14] LABS: VENOUS BASE EXCESS -4.5 mmol/L (-2-2); VENOUS O2 SATURATION 27.4 % (70-80); VENOUS PCO2 40.5 mmHg (38-52); VENOUS PH 7.333 (7.310-7.410)
[2021-05-09] MEDS ORDERED: VANCOMYCIN 1 GM in D5W (PRE-DOCKED) 1,000 MG/250 ML IVPB ONE (10:19)
[2021-05-09] MEDS ORDERED: PIPERACILLIN/TAZOB 4.5 GM 4.5 GM in DEXTROSE 5%-WATER 100 ML IVPB ONE (10:19)
[2021-05-09 10:26] LABS: EPI CELLS 2 /uL (0-25.1); HYALINE CASTS 1 /uL (0-3.1); URINE BACTERIA 5 /uL (0-1359); URINE RBC 11 /uL (0-23.9); URINE WBC 3 /uL (0-25.8)
[2021-05-09] MEDS ORDERED: PIPERACILLIN/TAZOB 4.5 GM 4.5 GM/100 ML BAG IVPB ONE (10:31)
[2021-05-09] MEDS ORDERED: VANCOMYCIN 1 GRAM (PRE-DOCKED) 1,000 MG/250 ML BAG IVPB ONE (10:31)
[2021-05-09 10:35] LABS: PHOSPHOROUS 2.4 mg/dL (2.5-4.9)
[2021-05-09] MEDS ORDERED: SODIUM CHLORIDE 0.9% 500 ML INFUS.BAG IV ONE (10:40)
[2021-05-09 10:46] LABS: LACTIC ACID 2.6 mmol/L (0.4-2.0)
[2021-05-09 10:49] LABS: ALBUMIN 3.8 g/dl (3.4-5.0); ALK PHOS 76 U/L (45-117); ANION GAP 7 MMOL/L (8-16); BLOOD UREA NITROGEN 13.4 mg/dL (7-18); CALCIUM 8.8 mg/dL (8.5-10.1); CHLORIDE 110 mmol/L (98-107); CO2 22 mmol/L (21-32); CREATININE 1.3 mg/dL (0.55-1.3); GLUCOSE,RANDOM 94 mg/dL (74-106); SGOT/AST 45 U/L (15-37); SGPT/ALT 17 U/L (13-61); SODIUM 139 mmol/L (136-145); TOT PROT 8.4 g/dl (6.4-8.2)
[2021-05-09 10:54] LABS: HEMATOCRIT 34.1 % (35.4-49); HEMOGLOBIN 10.7 GM/dL (11.7-16.9); MCHC 31.4 g/dl (32.0-35.9); MEAN CELL VOLUME 61.9 fl (80-96); MEAN PLT VOLUME 10.1 fl (7.5-11.1); PLATELET COUNT 317 10^3/uL (134-434); RBC 5.51 M/mm3 (4.00-5.60); RDW 50.6 % (11.9-15.9); WHITE BLOOD COUNT 14.7 K/mm3 (4.0-10.0)
[2021-05-09 10:55] LABS: MCH 19.4 pg (25.7-33.7)
[2021-05-09 11:04] LABS: INR 1.19 (0.83-1.09); PROTHROMBIN TIME (PATIENT) 13.9 SEC (9.7-13.0)
[2021-05-09 11:07] LABS: ACTIVATED PTT 28.5 SECONDS (25.2-36.5)
[2021-05-09 11:26] LABS: ANISOCYTOSIS 2+; MACROCYTOSIS 0; OVALOCYTE 2+; PLATELET ESTIMATE NORMAL; TEAR DROP CELLS 1+
[2021-05-09 12:05] LABS: PH,URINE 5.5 (5.0-8.0); URINE APPEARANCE Clear; URINE BILIRUBIN Negative (NEGATIVE); URINE COLOR Yellow; URINE GLUCOSE (UA) Negative (NEGATIVE); URINE KETONE Negative (NEGATIVE); URINE LEUK ESTERASE Negative (NEGATIVE); URINE NITRITE Negative (NEGATIVE); URINE PROTEIN Negative (NEGATIVE); URINE UROBILINOGEN 0.2 mg/dL (0.2-1.0)
[2021-05-09] MEDS ORDERED: ACETAMINOPHEN 325 MG TABLET (FP) PO PRN (18:44)
[2021-05-09 18:55] VITALS: BMI 24.7
[2021-05-09] MEDS: DEXTROSE 5%-0.45% SALINE 1,000 ML IV SCH (19:16)
[2021-05-09] MEDS: APIXABAN 5 MG TABLET PO SCH (21:48)
[2021-05-10 08:30] LABS: BASO % 0.4 % (0-2.0); HEMATOCRIT 30.4 % (35.4-49); HEMOGLOBIN 9.8 GM/dL (11.7-16.9); LYMPH % 11.5 % (8-40); MCHC 32.3 g/dl (32.0-35.9); MEAN CELL VOLUME 60.6 fl (80-96); MEAN PLT VOLUME 10.1 fl (7.5-11.1); NEUT % 84.1 % (42.8-82.8); PLATELET COUNT 314 10^3/uL (134-434); RBC 5.02 M/mm3 (4.00-5.60); RDW 49.4 % (11.9-15.9); WHITE BLOOD COUNT 12.9 K/mm3 (4.0-10.0)
[2021-05-10 08:38] LABS: MCH 19.6 pg (25.7-33.7)
[2021-05-10 09:01] LABS: CALCIUM 8.4 mg/dL (8.5-10.1)
[2021-05-10 09:06] LABS: BILIRUBIN,TOTAL 1.4 mg/dL (0.2-1); CREATININE 1.1 mg/dL (0.55-1.3); TOT PROT 6.8 g/dl (6.4-8.2)
[2021-05-10] MEDS: DEXTROSE 5%-0.45% SALINE 1,000 ML IV SCH (09:44)
[2021-05-10] MEDS: TAMSULOSIN HCL 0.4 MG CAP PO SCH (09:44)
[2021-05-10] MEDS: PANTOPRAZOLE 40 MG TABLET PO SCH (09:44)
[2021-05-10] MEDS: amLODIPine BESYLATE 5 MG TABLET (FP) PO SCH (09:44)
[2021-05-10] MEDS: APIXABAN 5 MG TABLET PO SCH ×2 (09:44→21:17)
[2021-05-10] MEDS: ASPIRIN 81 MG CHEWABLE TABLETS PO SCH (09:44)
[2021-05-10 10:24] LABS: PLATELET ESTIMATE NORMAL
[2021-05-10] MEDS ORDERED: DEXTROSE 5%-WATER - 50 ML IVPB ONE (12:54)
[2021-05-10] MEDS ORDERED: cefTRIAXone SODIUM 1 GM VIAL ONE (12:54)
[2021-05-10] MEDS: CEFTRIAXONE 1 GM in DEXTROSE 5%-WATER - 50 ML IVPB SCH (13:09)
[2021-05-10] MEDS ORDERED: ONDANSETRON 4 MG/2 ML VIAL IVPUSH PRN (14:48)
[2021-05-10] MEDS ORDERED: POTASSIUM CHLORIDE TABS 20 MEQ TABLET.ER (FP) PO ONE (19:53)
[2021-05-11] MEDS: DEXTROSE 5%-0.45% SALINE 1,000 ML IV SCH ×3 (01:39→21:29)
[2021-05-11] MEDS: METOCLOPRAMIDE HCL 10 MG TABLET (FP) PO SCH ×3 (06:06→17:09)
[2021-05-11] MEDS: TAMSULOSIN HCL 0.4 MG CAP PO SCH (08:08)
[2021-05-11] MEDS: LIPASE/PROTEASE/AMYLASE 36,000 UNIT CAPSULE PO SCH ×3 (08:08→17:08)
[2021-05-11] MEDS ORDERED: DEXTROSE 5%-WATER - 50 ML IVPB ONE (09:22)
[2021-05-11] MEDS ORDERED: cefTRIAXone SODIUM 1 GM VIAL ONE (09:22)
[2021-05-11] MEDS: PANTOPRAZOLE 40 MG TABLET PO SCH (09:26)
[2021-05-11] MEDS: amLODIPine BESYLATE 5 MG TABLET (FP) PO SCH (09:26)
[2021-05-11] MEDS: ASPIRIN 81 MG CHEWABLE TABLETS PO SCH (09:26)
[2021-05-11] MEDS: APIXABAN 5 MG TABLET PO SCH ×2 (09:26→22:01)
[2021-05-11] MEDS: CEFTRIAXONE 1 GM in DEXTROSE 5%-WATER - 50 ML IVPB SCH (09:26)
[2021-05-11 10:18] LABS: ALBUMIN 2.8 g/dl (3.4-5.0); BLOOD UREA NITROGEN 11.1 mg/dL (7-18)
[2021-05-11 10:20] LABS: BASO % 0.6 % (0-2.0); EOS % 1.1 % (0-4.5); HEMATOCRIT 30.2 % (35.4-49); HEMOGLOBIN 9.4 GM/dL (11.7-16.9); LYMPH % 21.5 % (8-40); MCHC 31.2 g/dl (32.0-35.9); MEAN CELL VOLUME 60.9 fl (80-96); MEAN PLT VOLUME 9.8 fl (7.5-11.1); MONO % 5.5 % (3.8-10.2); NEUT % 71.3 % (42.8-82.8); PLATELET COUNT 281 10^3/uL (134-434); RBC 4.96 M/mm3 (4.00-5.60); RDW 50.2 % (11.9-15.9); WHITE BLOOD COUNT 11.8 K/mm3 (4.0-10.0)
[2021-05-11 10:21] LABS: CREATININE 1.1 mg/dL (0.55-1.3)
[2021-05-11 10:23] LABS: BILIRUBIN,TOTAL 0.8 mg/dL (0.2-1); TOT PROT 6.7 g/dl (6.4-8.2)
[2021-05-11] MEDS ORDERED: PT OWN MED DRAWER 7, Y5N ONE (11:40)
[2021-05-11 11:41] LABS: ADD RBC MORPHOLOGY YES
[2021-05-12] MEDS: METOCLOPRAMIDE HCL 10 MG TABLET (FP) PO SCH ×3 (06:07→17:16)
[2021-05-12] MEDS ORDERED: PT OWN MED DRAWER 7, Y5N ONE (07:55)
[2021-05-12] MEDS: TAMSULOSIN HCL 0.4 MG CAP PO SCH (08:16)
[2021-05-12] MEDS: LIPASE/PROTEASE/AMYLASE 36,000 UNIT CAPSULE PO SCH ×3 (08:16→17:16)
[2021-05-12] MEDS ORDERED: DEXTROSE 5%-WATER - 50 ML IVPB ONE (09:26)
[2021-05-12] MEDS ORDERED: cefTRIAXone SODIUM 1 GM VIAL ONE (09:26)
[2021-05-12] MEDS: PANTOPRAZOLE 40 MG TABLET PO SCH (09:28)
[2021-05-12] MEDS: CEFTRIAXONE 1 GM in DEXTROSE 5%-WATER - 50 ML IVPB SCH (09:28)
[2021-05-12] MEDS: amLODIPine BESYLATE 5 MG TABLET (FP) PO SCH (09:28)
[2021-05-12] MEDS: ASPIRIN 81 MG CHEWABLE TABLETS PO SCH (09:28)
[2021-05-12] MEDS: APIXABAN 5 MG TABLET PO SCH ×2 (09:29→21:20)
[2021-05-12] MEDS: DEXTROSE 5%-0.45% SALINE 1,000 ML IV SCH (09:34)
[2021-05-12 09:35] LABS: BASO % 0.5 % (0-2.0); HEMATOCRIT 28.8 % (35.4-49); HEMOGLOBIN 9.4 GM/dL (11.7-16.9); LYMPH % 32.5 % (8-40); MCHC 32.7 g/dl (32.0-35.9); MEAN CELL VOLUME 60.2 fl (80-96); MEAN PLT VOLUME 9.6 fl (7.5-11.1); MONO % 5.9 % (3.8-10.2); NEUT % 59.1 % (42.8-82.8); PLATELET COUNT 277 10^3/uL (134-434); RBC 4.78 M/mm3 (4.00-5.60); RDW 49.5 % (11.9-15.9); WHITE BLOOD COUNT 8.3 K/mm3 (4.0-10.0)
[2021-05-12 09:36] LABS: MCH 19.7 pg (25.7-33.7)
[2021-05-12 11:19] LABS: ALBUMIN 2.9 g/dl (3.4-5.0); BLOOD UREA NITROGEN 8.6 mg/dL (7-18)
[2021-05-12 11:22] LABS: CREATININE 0.8 mg/dL (0.55-1.3)
[2021-05-12 11:24] LABS: BILIRUBIN,TOTAL 0.9 mg/dL (0.2-1); TOT PROT 6.8 g/dl (6.4-8.2)
[2021-05-13] MEDS: METOCLOPRAMIDE HCL 10 MG TABLET (FP) PO SCH ×2 (06:29→11:03)
[2021-05-13] MEDS: DEXTROSE 5%-0.45% SALINE 1,000 ML IV SCH (06:30)
[2021-05-13] MEDS: LIPASE/PROTEASE/AMYLASE 36,000 UNIT CAPSULE PO SCH ×2 (08:55→11:41)
[2021-05-13] MEDS: PANTOPRAZOLE 40 MG TABLET PO SCH (09:30)
[2021-05-13] MEDS: amLODIPine BESYLATE 5 MG TABLET (FP) PO SCH (09:30)
[2021-05-13] MEDS: ASPIRIN 81 MG CHEWABLE TABLETS PO SCH (09:30)
[2021-05-13] MEDS: TAMSULOSIN HCL 0.4 MG CAP PO SCH (09:30)
[2021-05-13] MEDS: APIXABAN 5 MG TABLET PO SCH (09:30)
[2021-05-13] MEDS ORDERED: PT OWN MED DRAWER 7, Y5N ONE (11:40)
[2021-05-13 14:31] VITALS: BP 152/72; PULSE 74; TEMP 98.6
== END 2021-05-13 15:26 | disposition home or self-care (01) | DRG 871 ==
LOC: JER 08:58 → JERBED 09:17 → J6S 15:33
PROVIDERS: ADMIT Internal Medicine; ATTEND Internal Medicine
DX: A41.9 Sepsis, unspecified organism (principal); G93.41 Metabolic encephalopathy; K86.1 Other chronic pancreatitis; J44.9 Chronic obstructive pulmonary disease, unspecified; I48.91 Unspecified atrial fibrillation; I25.10 Atherosclerotic heart disease of native coronary artery without angina pectoris; E78.5 Hyperlipidemia, unspecified; I10 Essential (primary) hypertension; E05.90 Thyrotoxicosis, unspecified without thyrotoxic crisis or storm; H40.9 Unspecified glaucoma; D64.9 Anemia, unspecified; N40.0 Benign prostatic hyperplasia without lower urinary tract symptoms; Z95.1 Presence of aortocoronary bypass graft
CPT/HCPCS: 36415; 70450-TC; 71045-TC-FY; 74177-TC; 80053; 81003; 82550; 82803; 82962; 83605; 83735; 84100; 84484; 85025; 85610; 85730; 86850; 86900; 86901; 87040; 87086; 93005; 93010; 99285-25; C9803; J0131; Q9967; U0003; U0005

== ENCOUNTER 2021-06-15 17:08 | Emergency (ER) | payer SELFPAY ==
[2021-06-15 18:17] VITALS: BP 132/49; PULSE 71; TEMP 99; BMI 21.9
[2021-06-17 11:07] LABS: SARS-CoV-2 NAA Detected (Not Detected)
== END 2021-06-15 21:29 | disposition home or self-care (01) ==
LOC: JER 17:08
DX: J06.9 Acute upper respiratory infection, unspecified (principal)
CPT/HCPCS: 71046-TC-FY; 87804; 87807; 99284-25; C9803; U0003; U0005

== ENCOUNTER 2022-08-03 11:47 | Inpatient (IN) | payer OTHER ==
[2022-08-03 12:08] VITALS: BMI 21.7
[2022-08-03] MEDS ORDERED: CEFTRIAXONE 1,000 MG in DEXTROSE 5%-WATER - 50 ML IVPB ONE (13:04)
[2022-08-03] MEDS ORDERED: AZITHROMYCIN IVPB 500 MG in DEXTROSE 5%-WATER - 250 ML IVPB ONE (13:04)
[2022-08-03 13:17] LABS: BASO % 1.2 % (0-2.0); EOS % 1.8 % (0-4.5); HEMATOCRIT 29.7 % (35.4-49); HEMOGLOBIN 9.2 GM/dL (11.7-16.9); LYMPH % 26.1 % (8-40); MCH 20.6 pg (25.7-33.7); MCHC 30.9 g/dl (32.0-35.9); MEAN CELL VOLUME 66.7 fl (80-96); MEAN PLT VOLUME 9.3 fl (7.5-11.1); NEUT % 60.9 % (42.8-82.8); RBC 4.45 M/mm3 (4.00-5.60); RDW 50.5 % (11.9-15.9)
[2022-08-03 13:20] LABS: VENOUS BASE EXCESS -1.4 mmol/L (-2-2); VENOUS O2 SATURATION 33.1 % (70-80); VENOUS PCO2 43.3 mmHg (38-52); VENOUS PH 7.361 (7.310-7.410)
[2022-08-03 13:22] LABS: PLATELET COUNT 443 10^3/uL (134-434)
[2022-08-03] MEDS ORDERED: CEFTRIAXONE 1 GM/50 ML BAG ONE (13:24)
[2022-08-03] MEDS ORDERED: AZITHROMYCIN IVPB 500 MG/250 ML BAG IVPB ONE (13:25)
[2022-08-03 13:40] LABS: ALBUMIN 3.5 g/dl (3.4-5.0); BLOOD UREA NITROGEN 22.8 mg/dL (7-18); CALCIUM 9.4 mg/dL (8.5-10.1)
[2022-08-03 13:43] LABS: CREATININE 1.4 mg/dL (0.55-1.3)
[2022-08-03 13:44] LABS: BILIRUBIN,TOTAL 0.7 mg/dL (0.2-1)
[2022-08-03 13:45] LABS: TOT PROT 7.8 g/dl (6.4-8.2)
[2022-08-03 14:05] LABS: EPI CELLS 6 /uL (0-25.1); HYALINE CASTS 0 /uL (0-3.1); PH,URINE 6.5 (5.0-8.0); URINE APPEARANCE CLEAR; URINE BACTERIA 11 /uL (0-1359); URINE BILIRUBIN NEGATIVE (NEGATIVE); URINE COLOR YELLOW; URINE GLUCOSE (UA) NEGATIVE (NEGATIVE); URINE KETONE TRACE (NEGATIVE); URINE LEUK ESTERASE 1+ (NEGATIVE); URINE NITRITE NEGATIVE (NEGATIVE); URINE PROTEIN TRACE (NEGATIVE); URINE RBC 11 /uL (0-23.9); URINE WBC 26 /uL (0-25.8)
[2022-08-03 14:13] LABS: ANISOCYTOSIS 3+; MACROCYTOSIS 0; OVALOCYTE 2+
[2022-08-03] MEDS ORDERED: ALBUTEROL SO4 2.5/IPRATROPIUM 0.5 INH SOL 3 ML VIAL.NEB. NEB PRN (21:05)
[2022-08-03] MEDS: MIRTAZAPINE 15 MG TABLET (FP) PO SCH (23:36)
[2022-08-03] MEDS: levETIRAcetam 250 MG TABLET PO SCH (23:36)
[2022-08-03] MEDS: LATANOPROST 0.005% OPHTH SOLN 2.5ML BOTTLE OU SCH (23:36)
[2022-08-03] MEDS: DONEPEZIL HCL 10 MG TABLET (FP) PO SCH (23:36)
[2022-08-03] MEDS: ATORVASTATIN CA 80 MG TABLET (FP) PO SCH (23:36)
[2022-08-04 10:47] LABS: BASO % 0.7 % (0-2.0); HEMATOCRIT 29.8 % (35.4-49); HEMOGLOBIN 9.3 GM/dL (11.7-16.9); LYMPH % 19.9 % (8-40); MCH 20.5 pg (25.7-33.7); MCHC 31.2 g/dl (32.0-35.9); MEAN CELL VOLUME 65.6 fl (80-96); MEAN PLT VOLUME 9.6 fl (7.5-11.1); MONO % 7.4 % (3.8-10.2); PLATELET COUNT 394 10^3/uL (134-434); RBC 4.55 M/mm3 (4.00-5.60)
[2022-08-04] MEDS: levETIRAcetam 250 MG TABLET PO SCH ×2 (10:53→21:46)
[2022-08-04] MEDS: ASPIRIN 81 MG CHEWABLE TABLETS PO SCH (10:53)
[2022-08-04] MEDS: LOSARTAN POTASSIUM 25 MG TABLET PO SCH (10:53)
[2022-08-04] MEDS: CEFTRIAXONE 1 GM in DEXTROSE 5%-WATER - 50 ML IVPB SCH (10:54)
[2022-08-04] MEDS: ENOXAPARIN NA (PORCINE) 40 MG/0.4 ML DISP.SYRIN SQ SCH (10:54)
[2022-08-04] MEDS: FERROUS SO4 325 MG TABLET (FP) PO SCH (10:54)
[2022-08-04] MEDS: AMIODARONE HCL 200 MG TABLET PO SCH (10:54)
[2022-08-04 11:03] LABS: CALCIUM 9.3 mg/dL (8.5-10.1)
[2022-08-04 11:04] LABS: ALBUMIN 3.6 g/dl (3.4-5.0)
[2022-08-04 11:07] LABS: CREATININE 1.1 mg/dL (0.55-1.3)
[2022-08-04 11:09] LABS: BILIRUBIN,TOTAL 0.9 mg/dL (0.2-1)
[2022-08-04] MEDS: AZITHROMYCIN IVPB 250 MG in DEXTROSE 5%-WATER - 250 ML IVPB SCH (13:14)
[2022-08-04] MEDS: ATORVASTATIN CA 80 MG TABLET (FP) PO SCH (21:45)
[2022-08-04] MEDS: MIRTAZAPINE 15 MG TABLET (FP) PO SCH (21:46)
[2022-08-04] MEDS: LATANOPROST 0.005% OPHTH SOLN 2.5ML BOTTLE OU SCH (21:46)
[2022-08-04] MEDS: DONEPEZIL HCL 10 MG TABLET (FP) PO SCH (21:46)
[2022-08-05] MEDS: CEFTRIAXONE 1 GM in DEXTROSE 5%-WATER - 50 ML IVPB SCH (10:14)
[2022-08-05] MEDS: FERROUS SO4 325 MG TABLET (FP) PO SCH (10:14)
[2022-08-05] MEDS: LOSARTAN POTASSIUM 25 MG TABLET PO SCH (10:14)
[2022-08-05] MEDS: AMIODARONE HCL 200 MG TABLET PO SCH (10:14)
[2022-08-05] MEDS: ASPIRIN 81 MG CHEWABLE TABLETS PO SCH (10:14)
[2022-08-05] MEDS: levETIRAcetam 250 MG TABLET PO SCH ×2 (10:14→21:52)
[2022-08-05] MEDS: ENOXAPARIN NA (PORCINE) 40 MG/0.4 ML DISP.SYRIN SQ SCH (10:14)
[2022-08-05] MEDS: AZITHROMYCIN IVPB 250 MG in DEXTROSE 5%-WATER - 250 ML IVPB SCH (10:15)
[2022-08-05] MEDS: LATANOPROST 0.005% OPHTH SOLN 2.5ML BOTTLE OU SCH (21:52)
[2022-08-05] MEDS: ATORVASTATIN CA 80 MG TABLET (FP) PO SCH (21:52)
[2022-08-05] MEDS: POLYETHYLENE GLYCOL (HEALTHYLAX) 3350 17 GM PACKET PO SCH (21:52)
[2022-08-05] MEDS: MIRTAZAPINE 15 MG TABLET (FP) PO SCH (21:52)
[2022-08-05] MEDS: DONEPEZIL HCL 10 MG TABLET (FP) PO SCH (21:52)
[2022-08-06] MEDS: FERROUS SO4 325 MG TABLET (FP) PO SCH (10:18)
[2022-08-06] MEDS: CEFTRIAXONE 1 GM in DEXTROSE 5%-WATER - 50 ML IVPB SCH (10:18)
[2022-08-06] MEDS: levETIRAcetam 250 MG TABLET PO SCH ×2 (10:18→21:40)
[2022-08-06] MEDS: ENOXAPARIN NA (PORCINE) 40 MG/0.4 ML DISP.SYRIN SQ SCH (10:18)
[2022-08-06] MEDS: LOSARTAN POTASSIUM 25 MG TABLET PO SCH (10:18)
[2022-08-06] MEDS: ASPIRIN 81 MG CHEWABLE TABLETS PO SCH (10:18)
[2022-08-06] MEDS: metoPROLOL SUCCINATE 25 MG TAB.SR.24H (FP) PO SCH (10:19)
[2022-08-06] MEDS: AZITHROMYCIN IVPB 250 MG in DEXTROSE 5%-WATER - 250 ML IVPB SCH (10:19)
[2022-08-06] MEDS: POLYETHYLENE GLYCOL (HEALTHYLAX) 3350 17 GM PACKET PO SCH ×2 (10:31→21:40)
[2022-08-06 10:45] LABS: N-TERMINAL BNP 909.5 pg/ml (5-450)
[2022-08-06] MEDS: LATANOPROST 0.005% OPHTH SOLN 2.5ML BOTTLE OU SCH (21:40)
[2022-08-06] MEDS: DONEPEZIL HCL 10 MG TABLET (FP) PO SCH (21:40)
[2022-08-06] MEDS: MIRTAZAPINE 15 MG TABLET (FP) PO SCH (21:40)
[2022-08-06] MEDS: ATORVASTATIN CA 80 MG TABLET (FP) PO SCH (21:40)
[2022-08-06] MEDS: APIXABAN 5 MG TABLET PO SCH (21:40)
[2022-08-07] MEDS: CEFTRIAXONE 1 GM in DEXTROSE 5%-WATER - 50 ML IVPB SCH (10:09)
[2022-08-07] MEDS: APIXABAN 5 MG TABLET PO SCH (10:10)
[2022-08-07] MEDS: LOSARTAN POTASSIUM 25 MG TABLET PO SCH (10:10)
[2022-08-07] MEDS: levETIRAcetam 250 MG TABLET PO SCH (10:10)
[2022-08-07] MEDS: FERROUS SO4 325 MG TABLET (FP) PO SCH (10:10)
[2022-08-07] MEDS: AZITHROMYCIN IVPB 250 MG in DEXTROSE 5%-WATER - 250 ML IVPB SCH (10:10)
[2022-08-07] MEDS: metoPROLOL SUCCINATE 25 MG TAB.SR.24H (FP) PO SCH (10:10)
[2022-08-07] MEDS: POLYETHYLENE GLYCOL (HEALTHYLAX) 3350 17 GM PACKET PO SCH (10:11)
[2022-08-07 14:41] VITALS: RESP 18
[2022-08-07 18:42] VITALS: BP 114/54; PULSE 62; TEMP 98.7
== END 2022-08-07 20:45 | DRG 193 ==
LOC: JER 11:47 → JERBED 13:03 → J4S 18:04
PROVIDERS: ADMIT Internal Medicine; ATTEND Internal Medicine
DX: J18.9 Pneumonia, unspecified organism (principal); G93.41 Metabolic encephalopathy; I69.354 Hemiplegia and hemiparesis following cerebral infarction affecting left non-dominant side; N17.9 Acute kidney failure, unspecified; N40.0 Benign prostatic hyperplasia without lower urinary tract symptoms; Z79.01 Long term (current) use of anticoagulants; Z95.1 Presence of aortocoronary bypass graft; I25.10 Atherosclerotic heart disease of native coronary artery without angina pectoris; E78.5 Hyperlipidemia, unspecified; I48.0 Paroxysmal atrial fibrillation; D64.9 Anemia, unspecified; F32.A Depression, unspecified
CPT/HCPCS: 0241U-QW; 36415; 70450-TC; 70551-TC; 71045-TC-FY; 80053; 80061; 81003; 82803; 82962; 83036; 83880; 84439; 84443; 84484; 85025; 87086; 87186; 93005; 93010; 93306-TC; 97116-GP; 97162-GP; 99285-25

== ENCOUNTER 2022-11-14 10:21 | Inpatient (IN) | payer OTHER ==
[2022-11-14] MEDS ORDERED: ACETAMINOPHEN 1000 MG/100 ML BAG IVPB ONE (10:52)
[2022-11-14] MEDS ORDERED: ACETAMINOPHEN INJECTION 100 ML IVPB ONE (11:13)
[2022-11-14 11:33] LABS: HEMATOCRIT 28.2 % (35.4-49); HEMOGLOBIN 8.9 GM/dL (11.7-16.9); LYMPH % 21.4 % (8-40); MCHC 31.8 g/dl (32.0-35.9); MEAN CELL VOLUME 61.6 fl (80-96); MONO % 7.2 % (3.8-10.2); NEUT % 66.4 % (42.8-82.8); RBC 4.57 M/mm3 (4.00-5.60); RDW 48.2 % (11.9-15.9); WHITE BLOOD COUNT 10.4 K/mm3 (4.0-10.0)
[2022-11-14 11:35] LABS: MCH 19.6 pg (25.7-33.7)
[2022-11-14 11:59] LABS: POTASSIUM 4.2 mmol/L (3.5-5.1)
[2022-11-14 12:01] LABS: MEAN PLT VOLUME 8.4 fl (7.5-11.1); PLATELET COUNT 337 10^3/uL (134-434)
[2022-11-14 12:02] LABS: ANISOCYTOSIS 2+; BLOOD UREA NITROGEN 28.2 mg/dL (7-18)
[2022-11-14 12:03] LABS: OVALOCYTE 2+
[2022-11-14 12:05] LABS: CREATININE 1.1 mg/dL (0.55-1.3)
[2022-11-14 12:06] LABS: BILIRUBIN,TOTAL 1.1 mg/dL (0.2-1); TOT PROT 8.3 g/dl (6.4-8.2)
[2022-11-14 13:10] LABS: EPI CELLS 5 /uL (0-25.1); HYALINE CASTS 0 /uL (0-3.1); URINE APPEARANCE CLEAR; URINE BACTERIA 10 /uL (0-1359); URINE BILIRUBIN NEGATIVE (NEGATIVE); URINE COLOR YELLOW; URINE GLUCOSE (UA) NEGATIVE (NEGATIVE); URINE KETONE NEGATIVE (NEGATIVE); URINE LEUK ESTERASE 2+ (NEGATIVE); URINE NITRITE NEGATIVE (NEGATIVE); URINE PROTEIN NEGATIVE (NEGATIVE); URINE RBC 5 /uL (0-23.9); URINE WBC 15 /uL (0-25.8)
[2022-11-15] MEDS: APIXABAN 5 MG TABLET PO SCH ×3 (00:33→21:36)
[2022-11-15] MEDS: levETIRAcetam 500 MG TABLET (FP) PO SCH ×3 (00:33→21:36)
[2022-11-15 09:31] LABS: BASO % 0.9 % (0-2.0); EOS % 3.4 % (0-4.5); HEMATOCRIT 28.5 % (35.4-49); HEMOGLOBIN 9.5 GM/dL (11.7-16.9); LYMPH % 21.7 % (8-40); MCHC 33.5 g/dl (32.0-35.9); MEAN CELL VOLUME 59.6 fl (80-96); MONO % 6.4 % (3.8-10.2); NEUT % 67.6 % (42.8-82.8); RBC 4.78 M/mm3 (4.00-5.60); RDW 48.8 % (11.9-15.9)
[2022-11-15 09:36] LABS: MCH 19.9 pg (25.7-33.7)
[2022-11-15] MEDS: metoPROLOL SUCCINATE 25 MG TAB.SR.24H (FP) PO SCH (09:53)
[2022-11-15] MEDS: ASPIRIN COATED 81 MG TABLET.EC PO SCH (09:53)
[2022-11-15] MEDS: POLYETHYLENE GLYCOL (HEALTHYLAX) 3350 17 GM PACKET PO SCH ×2 (09:54→21:36)
[2022-11-15 10:08] LABS: POTASSIUM 3.9 mmol/L (3.5-5.1)
[2022-11-15 10:15] LABS: ALBUMIN 3.9 g/dl (3.4-5.0)
[2022-11-15 10:16] LABS: CALCIUM 9.8 mg/dL (8.5-10.1)
[2022-11-15 10:19] LABS: TOT PROT 8.2 g/dl (6.4-8.2)
[2022-11-15 10:20] LABS: BILIRUBIN,TOTAL 1.3 mg/dL (0.2-1)
[2022-11-15 10:21] LABS: PLATELET ESTIMATE DECREASED
[2022-11-15 10:52] LABS: CHOLESTEROL 121 mg/dL (50-200)
[2022-11-15 10:53] LABS: LDL CHOLESTEROL (ONLY SJRH) 50 mg/dL (5-100)
[2022-11-15 10:56] LABS: HDL CHOLESTEROL 63 mg/dL (40-60)
[2022-11-15] MEDS: ATORVASTATIN CA 20 MG TABLET (FP) PO SCH (21:36)
[2022-11-15] MEDS: MIRTAZAPINE 15 MG TABLET (FP) PO SCH (21:36)
[2022-11-16] MEDS: APIXABAN 5 MG TABLET PO SCH ×2 (09:16→22:00)
[2022-11-16] MEDS: ASPIRIN COATED 81 MG TABLET.EC PO SCH (09:16)
[2022-11-16] MEDS: metoPROLOL SUCCINATE 25 MG TAB.SR.24H (FP) PO SCH (09:16)
[2022-11-16] MEDS: POLYETHYLENE GLYCOL (HEALTHYLAX) 3350 17 GM PACKET PO SCH ×2 (09:16→22:01)
[2022-11-16] MEDS: levETIRAcetam 500 MG TABLET (FP) PO SCH ×2 (09:16→22:00)
[2022-11-16 14:49] VITALS: BMI 19.2
[2022-11-16] MEDS ORDERED: ESCITALOPRAM OXALATE 10 MG TABLET PO ONE (17:03)
[2022-11-16] MEDS: MIRTAZAPINE 15 MG TABLET (FP) PO SCH (22:00)
[2022-11-16] MEDS: ATORVASTATIN CA 20 MG TABLET (FP) PO SCH (22:00)
[2022-11-17] MEDS: APIXABAN 5 MG TABLET PO SCH ×2 (10:06→21:25)
[2022-11-17] MEDS: metoPROLOL SUCCINATE 25 MG TAB.SR.24H (FP) PO SCH (10:07)
[2022-11-17] MEDS: ASPIRIN COATED 81 MG TABLET.EC PO SCH (10:07)
[2022-11-17] MEDS: POLYETHYLENE GLYCOL (HEALTHYLAX) 3350 17 GM PACKET PO SCH ×2 (10:07→21:25)
[2022-11-17] MEDS: levETIRAcetam 500 MG TABLET (FP) PO SCH ×2 (10:07→21:25)
[2022-11-17] MEDS: ATORVASTATIN CA 20 MG TABLET (FP) PO SCH (21:25)
[2022-11-17] MEDS: MIRTAZAPINE 15 MG TABLET (FP) PO SCH (21:25)
[2022-11-18] MEDS: ESCITALOPRAM OXALATE 10 MG TABLET PO SCH (10:04)
[2022-11-18] MEDS: levETIRAcetam 500 MG TABLET (FP) PO SCH ×2 (10:04→21:28)
[2022-11-18] MEDS: ASPIRIN COATED 81 MG TABLET.EC PO SCH (10:04)
[2022-11-18] MEDS: metoPROLOL SUCCINATE 25 MG TAB.SR.24H (FP) PO SCH (10:04)
[2022-11-18] MEDS: APIXABAN 5 MG TABLET PO SCH ×2 (10:04→21:27)
[2022-11-18] MEDS: POLYETHYLENE GLYCOL (HEALTHYLAX) 3350 17 GM PACKET PO SCH ×2 (12:16→21:28)
[2022-11-18] MEDS: ATORVASTATIN CA 20 MG TABLET (FP) PO SCH (21:28)
[2022-11-18] MEDS: MIRTAZAPINE 15 MG TABLET (FP) PO SCH (21:28)
[2022-11-19 05:23] VITALS: RESP 18
[2022-11-19] MEDS: metoPROLOL SUCCINATE 25 MG TAB.SR.24H (FP) PO SCH (10:24)
[2022-11-19] MEDS: ASPIRIN COATED 81 MG TABLET.EC PO SCH (10:24)
[2022-11-19] MEDS: ESCITALOPRAM OXALATE 10 MG TABLET PO SCH (10:24)
[2022-11-19] MEDS: APIXABAN 5 MG TABLET PO SCH (10:24)
[2022-11-19] MEDS: levETIRAcetam 500 MG TABLET (FP) PO SCH (10:24)
[2022-11-19] MEDS: POLYETHYLENE GLYCOL (HEALTHYLAX) 3350 17 GM PACKET PO SCH (10:25)
[2022-11-19 10:29] LABS: POTASSIUM 4.1 mmol/L (3.5-5.1)
[2022-11-19 10:36] LABS: BASO % 0.6 % (0-2.0); EOS % 3.3 % (0-4.5); HEMATOCRIT 28.8 % (35.4-49); HEMOGLOBIN 8.9 GM/dL (11.7-16.9); LYMPH % 26.8 % (8-40); MCHC 31.1 g/dl (32.0-35.9); MONO % 7.5 % (3.8-10.2); NEUT % 61.8 % (42.8-82.8); PLATELET COUNT 275 10^3/uL (134-434); RBC 4.71 M/mm3 (4.00-5.60); RDW 48.8 % (11.9-15.9); WHITE BLOOD COUNT 10.7 K/mm3 (4.0-10.0)
[2022-11-19 10:39] LABS: ALBUMIN 3.5 g/dl (3.4-5.0); BLOOD UREA NITROGEN 29.5 mg/dL (7-18); CALCIUM 9.8 mg/dL (8.5-10.1)
[2022-11-19 10:42] LABS: MEAN PLT VOLUME 9.8 fl (7.5-11.1)
[2022-11-19 10:44] LABS: BILIRUBIN,TOTAL 0.8 mg/dL (0.2-1); TOT PROT 7.5 g/dl (6.4-8.2)
[2022-11-19 11:59] LABS: ANISOCYTOSIS 2+; MACROCYTOSIS 1+; OVALOCYTE 2+; TEAR DROP CELLS 2+
[2022-11-19 15:10] VITALS: BP 118/57; PULSE 63; TEMP 98.2
== END 2022-11-19 18:13 | DRG 57 ==
LOC: JER 10:21 → UNDOADMOB 14:57 → INTOOBSV 14:57 → JERBED 14:57 → J6S 17:22 → JERBED 17:22 → J6S 17:24 → OBSVTOIN 11-15 14:52
PROVIDERS: ADMIT Internal Medicine; ATTEND Internal Medicine
DX: I69.30 Unspecified sequelae of cerebral infarction (principal); I69.354 Hemiplegia and hemiparesis following cerebral infarction affecting left non-dominant side; M54.50 Low back pain, unspecified; I10 Essential (primary) hypertension; J44.9 Chronic obstructive pulmonary disease, unspecified; I48.91 Unspecified atrial fibrillation; E78.5 Hyperlipidemia, unspecified; N40.0 Benign prostatic hyperplasia without lower urinary tract symptoms; F32.A Depression, unspecified; I25.10 Atherosclerotic heart disease of native coronary artery without angina pectoris; Z95.1 Presence of aortocoronary bypass graft
CPT/HCPCS: 0241U-QW; 36415; 71045-TC-FY; 80053; 80061; 81003; 85025; 87086; 87635; 93005; 93010; 97116-GP; 99285-25; G0378

== ENCOUNTER 2024-04-04 15:49 | Inpatient (IN) | payer OTHER ==
[2024-04-04 17:59] LABS: BASO % 1.4 % (0-2.0); EOS % 1.3 % (0-4.5); HEMATOCRIT 26.3 % (35.4-49); HEMOGLOBIN 8.3 GM/dL (11.7-16.9); LYMPH % 23.2 % (8-40); MCH 20.1 pg (25.7-33.7); MCHC 31.5 g/dl (32.0-35.9); MEAN CELL VOLUME 63.7 fl (80-96); MONO % 8.5 % (3.8-10.2); NEUT % 65.6 % (42.8-82.8); RBC 4.13 M/mm3 (4.00-5.60); RDW 49.6 % (11.9-15.9); WHITE BLOOD COUNT 10.5 K/mm3 (4.0-10.0)
[2024-04-04 18:29] LABS: POTASSIUM 4.1 mmol/L (3.5-5.1)
[2024-04-04 18:31] LABS: CALCIUM 9.1 mg/dL (8.5-10.1)
[2024-04-04 18:32] LABS: ALBUMIN 3.3 g/dl (3.4-5.0); ANISOCYTOSIS 2+; BLOOD UREA NITROGEN 29.2 mg/dL (7-18); MACROCYTOSIS 0; MAGNESIUM 2.3 mg/dL (1.8-2.4); OVALOCYTE 2+
[2024-04-04 18:33] LABS: MEAN PLT VOLUME 10.2 fl (7.5-11.1); PLATELET COUNT 279 10^3/uL (134-434)
[2024-04-04 18:34] LABS: INR 1.31 (0.83-1.09); PROTHROMBIN TIME (PATIENT) 14.7 SEC (9.7-13.0)
[2024-04-04 18:35] LABS: CREATININE 1.9 mg/dL (0.55-1.3)
[2024-04-04 18:36] LABS: ACTIVATED PTT 32.7 SECONDS (25.2-36.5); BILIRUBIN,TOTAL 0.6 mg/dL (0.2-1); TOT PROT 7.6 g/dl (6.4-8.2)
[2024-04-04] MEDS ORDERED: CEFTRIAXONE 1 GM/50 ML BAG ONE (19:39)
[2024-04-04] MEDS: CEFTRIAXONE 1 GM in DEXTROSE 5%-WATER - 100 ML IVPB ONE (19:48)
[2024-04-04] MEDS: LACTATED RINGERS SOLUTION 1000 ML INFUS.BAG IV ONE (19:48)
[2024-04-04 20:02] LABS: EPI CELLS 15 /uL (0-25.1); HYALINE CASTS 1 /uL (0-3.1); URINE APPEARANCE CLEAR; URINE BACTERIA 6 /uL (0-1359); URINE BILIRUBIN NEGATIVE (NEGATIVE); URINE COLOR YELLOW; URINE GLUCOSE (UA) NEGATIVE (NEGATIVE); URINE KETONE TRACE (NEGATIVE); URINE LEUK ESTERASE TRACE (NEGATIVE); URINE NITRITE NEGATIVE (NEGATIVE); URINE PROTEIN NEGATIVE (NEGATIVE); URINE RBC 14 /uL (0-23.9); URINE WBC 32 /uL (0-25.8)
[2024-04-04] MEDS ORDERED: AZITHROMYCIN IVPB 500 MG/250 ML BAG IVPB ONE (20:25)
[2024-04-04] MEDS: AZITHROMYCIN IVPB 500 MG in DEXTROSE 5%-WATER - 250 ML IVPB ONE (20:53)
[2024-04-05 08:48] LABS: BASO % 0.5 % (0-2.0); EOS % 2.2 % (0-4.5); HEMATOCRIT 23.9 % (35.4-49); HEMOGLOBIN 7.6 GM/dL (11.7-16.9); LYMPH % 20.3 % (8-40); MCHC 31.7 g/dl (32.0-35.9); MEAN CELL VOLUME 62.5 fl (80-96); MEAN PLT VOLUME 9.8 fl (7.5-11.1); MONO % 7.8 % (3.8-10.2); NEUT % 69.2 % (42.8-82.8); PLATELET COUNT 253 10^3/uL (134-434); RBC 3.83 M/mm3 (4.00-5.60); RDW 49.6 % (11.9-15.9)
[2024-04-05 08:51] LABS: MCH 19.8 pg (25.7-33.7)
[2024-04-05 09:12] LABS: POTASSIUM 3.7 mmol/L (3.5-5.1)
[2024-04-05 09:19] LABS: BLOOD UREA NITROGEN 24.2 mg/dL (7-18); CALCIUM 8.8 mg/dL (8.5-10.1); MAGNESIUM 2.1 mg/dL (1.8-2.4)
[2024-04-05 09:23] LABS: CREATININE 1.4 mg/dL (0.55-1.3)
[2024-04-05] MEDS: AZITHROMYCIN IVPB 500 MG/250 ML BAG IVPB SCH (11:07)
[2024-04-05] MEDS ORDERED: CEFTRIAXONE 1 GM in DEXTROSE 5%-WATER - 50 ML IVPB SCH (11:46)
[2024-04-05] MEDS: CEFTRIAXONE 1 G/50 ML PREMIX 50 ML IVPB SCH ×2 (14:12→15:31)
[2024-04-05 14:19] LABS: N-TERMINAL BNP 3089.4 pg/ml (5-450)
[2024-04-05] MEDS: FUROSEMIDE 40 MG/4 ML INJECTABLE VIAL IVPUSH ONE (15:30)
[2024-04-05 16:21] VITALS: BMI 17.2
[2024-04-05] MEDS: levETIRAcetam 500 MG TABLET (FP) PO SCH (22:19)
[2024-04-05] MEDS: MIRTAZAPINE 15 MG TABLET (FP) PO SCH (22:19)
[2024-04-05] MEDS: ATORVASTATIN CA 20 MG TABLET (FP) PO SCH (22:19)
[2024-04-05] MEDS: APIXABAN 5 MG TABLET PO SCH (22:19)
[2024-04-06] MEDS: ASPIRIN COATED 81 MG TABLET.EC PO SCH (09:54)
[2024-04-06] MEDS: ESCITALOPRAM OXALATE 10 MG TABLET PO SCH (09:54)
[2024-04-06 11:08] LABS: POTASSIUM 3.9 mmol/L (3.5-5.1)
[2024-04-06 11:18] LABS: BASO % 0.4 % (0-2.0); CALCIUM 9.2 mg/dL (8.5-10.1); EOS % 2.8 % (0-4.5); HEMATOCRIT 26.5 % (35.4-49); HEMOGLOBIN 8.6 GM/dL (11.7-16.9); MCH 20.2 pg (25.7-33.7); MCHC 32.6 g/dl (32.0-35.9); MEAN CELL VOLUME 61.9 fl (80-96); MONO % 5.7 % (3.8-10.2); NEUT % 69.1 % (42.8-82.8); PLATELET COUNT 272 10^3/uL (134-434); RBC 4.28 M/mm3 (4.00-5.60); RDW 49.3 % (11.9-15.9); WHITE BLOOD COUNT 9.9 K/mm3 (4.0-10.0)
[2024-04-06 11:19] LABS: ALBUMIN 3.5 g/dl (3.4-5.0); BLOOD UREA NITROGEN 17.7 mg/dL (7-18)
[2024-04-06 11:23] LABS: BILIRUBIN,TOTAL 0.8 mg/dL (0.2-1); TOT PROT 7.6 g/dl (6.4-8.2)
[2024-04-06 11:28] LABS: CREATININE 1.1 mg/dL (0.55-1.3)
[2024-04-06] MEDS: FUROSEMIDE 40 MG/4 ML INJECTABLE VIAL IVPUSH ONE (14:36)
[2024-04-07] MEDS: metoPROLOL SUCCINATE 25 MG TAB.SR.24H (FP) PO SCH (12:03)
[2024-04-07] MEDS: FUROSEMIDE 40 MG/4 ML INJECTABLE VIAL IVPUSH ONE (15:11)
[2024-04-08 09:25] LABS: CALCIUM 8.6 mg/dL (8.5-10.1)
[2024-04-08 09:26] LABS: ALBUMIN 3.3 g/dl (3.4-5.0); BLOOD UREA NITROGEN 22.9 mg/dL (7-18)
[2024-04-08] MEDS: TAMSULOSIN HCL 0.4 MG CAP PO SCH (09:28)
[2024-04-08] MEDS: metoPROLOL SUCCINATE 25 MG TAB.SR.24H (FP) PO SCH (09:28)
[2024-04-08 09:29] LABS: CREATININE 1.2 mg/dL (0.55-1.3)
[2024-04-08 09:30] LABS: BILIRUBIN,TOTAL 0.7 mg/dL (0.2-1)
[2024-04-08 09:31] LABS: TOT PROT 7.3 g/dl (6.4-8.2)
[2024-04-08 09:36] LABS: BASO % 0.7 % (0-2.0); EOS % 5.8 % (0-4.5); HEMATOCRIT 26.8 % (35.4-49); HEMOGLOBIN 8.3 GM/dL (11.7-16.9); LYMPH % 24.7 % (8-40); MCHC 31.1 g/dl (32.0-35.9); MEAN CELL VOLUME 62.7 fl (80-96); MEAN PLT VOLUME 10.1 fl (7.5-11.1); MONO % 7.4 % (3.8-10.2); NEUT % 61.4 % (42.8-82.8); RBC 4.27 M/mm3 (4.00-5.60); RDW 49.9 % (11.9-15.9)
[2024-04-08 09:42] LABS: MCH 19.5 pg (25.7-33.7)
[2024-04-08 10:33] LABS: ANISOCYTOSIS 2+; MACROCYTOSIS 0; OVALOCYTE 2+
[2024-04-08 10:35] LABS: PLATELET COUNT 331 10^3/uL (134-434)
[2024-04-08 15:46] VITALS: RESP 18
[2024-04-09 08:17] LABS: HEMATOCRIT 25.4 % (35.4-49); HEMOGLOBIN 7.9 GM/dL (11.7-16.9); LYMPH % 29.4 % (8-40); MEAN CELL VOLUME 63.3 fl (80-96); MEAN PLT VOLUME 8.8 fl (7.5-11.1); MONO % 6.1 % (3.8-10.2); NEUT % 58.5 % (42.8-82.8); RBC 4.01 M/mm3 (4.00-5.60); RDW 50.5 % (11.9-15.9)
[2024-04-09 08:30] LABS: MCH 19.6 pg (25.7-33.7)
[2024-04-09 08:35] LABS: POTASSIUM 4.2 mmol/L (3.5-5.1)
[2024-04-09 08:42] LABS: ALBUMIN 3.2 g/dl (3.4-5.0); BLOOD UREA NITROGEN 26.6 mg/dL (7-18)
[2024-04-09 08:44] LABS: CREATININE 1.2 mg/dL (0.55-1.3)
[2024-04-09 08:46] LABS: BILIRUBIN,TOTAL 0.6 mg/dL (0.2-1)
[2024-04-09 09:38] LABS: PLATELET COUNT 268 10^3/uL (134-434)
[2024-04-09] MEDS: metoPROLOL SUCCINATE 25 MG TAB.SR.24H (FP) PO SCH (11:15)
[2024-04-10 09:52] LABS: BASO % 0.7 % (0-2.0); EOS % 3.7 % (0-4.5); HEMATOCRIT 28.2 % (35.4-49); LYMPH % 25.6 % (8-40); MCH 20.3 pg (25.7-33.7); MEAN CELL VOLUME 63.6 fl (80-96); MEAN PLT VOLUME 8.9 fl (7.5-11.1); MONO % 6.1 % (3.8-10.2); NEUT % 63.9 % (42.8-82.8); RBC 4.44 M/mm3 (4.00-5.60); RDW 49.8 % (11.9-15.9); WHITE BLOOD COUNT 12.1 K/mm3 (4.0-10.0)
[2024-04-10 09:58] LABS: PLATELET COUNT 332 10^3/uL (134-434)
[2024-04-10 10:01] LABS: POTASSIUM 4.5 mmol/L (3.5-5.1)
[2024-04-10 10:07] LABS: ALBUMIN 3.4 g/dl (3.4-5.0); BLOOD UREA NITROGEN 23.2 mg/dL (7-18)
[2024-04-10 10:08] LABS: CALCIUM 8.6 mg/dL (8.5-10.1)
[2024-04-10 10:12] LABS: BILIRUBIN,TOTAL 0.7 mg/dL (0.2-1); CREATININE 1.2 mg/dL (0.55-1.3); TOT PROT 7.6 g/dl (6.4-8.2)
[2024-04-11] MEDS: ACETAMINOPHEN 500 MG TABLET (FP) PO ONE (06:53)
[2024-04-11 15:49] VITALS: BP 134/75; PULSE 60; TEMP 98.1
== END 2024-04-11 15:49 | disposition home health service (06) | DRG 193 ==
LOC: JER 15:49 → JERBED 18:26 → J8W 22:35
PROVIDERS: ADMIT Internal Medicine; ATTEND Internal Medicine
DX: J18.9 Pneumonia, unspecified organism (principal); G93.41 Metabolic encephalopathy; I50.33 Acute on chronic diastolic (congestive) heart failure; N17.9 Acute kidney failure, unspecified; I69.354 Hemiplegia and hemiparesis following cerebral infarction affecting left non-dominant side; I48.91 Unspecified atrial fibrillation; Z79.01 Long term (current) use of anticoagulants; J45.909 Unspecified asthma, uncomplicated; E86.0 Dehydration; I95.9 Hypotension, unspecified; E03.9 Hypothyroidism, unspecified; I25.10 Atherosclerotic heart disease of native coronary artery without angina pectoris; I11.0 Hypertensive heart disease with heart failure; D64.9 Anemia, unspecified; G40.909 Epilepsy, unspecified, not intractable, without status epilepticus
CPT/HCPCS: 0241U-QW; 36415; 70450-TC; 71045-TC-FY; 71046-TC-FY; 74230-TC-FY; 80048; 80053; 81003; 83735; 83880; 84443; 84484; 85025; 85610; 85730; 86850; 86900; 86901; 87040; 87086; 87899; 92611-GN; 93005; 93010; 93306-TC; 97116-GP; 97161-GP; 99285-25

== ENCOUNTER 2024-05-24 15:01 | Inpatient (IN) | payer OTHER ==
[2024-05-24 17:24] LABS: HEMATOCRIT 30.9 % (35.4-49); HEMOGLOBIN 9.3 GM/dL (11.7-16.9); MCHC 30.1 g/dl (32.0-35.9); MEAN CELL VOLUME 61.8 fl (80-96); PLATELET COUNT 312 10^3/uL (134-434); WHITE BLOOD COUNT 23.9 K/mm3 (4.0-10.0)
[2024-05-24 17:26] LABS: MCH 18.6 pg (25.7-33.7)
[2024-05-24 17:38] LABS: POTASSIUM 4.9 mmol/L (3.5-5.1)
[2024-05-24 17:40] LABS: CALCIUM 9.4 mg/dL (8.5-10.1)
[2024-05-24 17:41] LABS: MAGNESIUM 2.3 mg/dL (1.8-2.4)
[2024-05-24 17:44] LABS: CREATININE 1.7 mg/dL (0.55-1.3)
[2024-05-24 17:45] LABS: BILIRUBIN,TOTAL 0.9 mg/dL (0.2-1); TOT PROT 8.7 g/dl (6.4-8.2)
[2024-05-24 18:09] LABS: INR 1.75 (0.83-1.09); PROTHROMBIN TIME (PATIENT) 19.5 SEC (9.7-13.0)
[2024-05-24 18:12] LABS: ACTIVATED PTT 27.8 SECONDS (25.2-36.5)
[2024-05-24 18:37] LABS: ANISOCYTOSIS 3+; MACROCYTOSIS 0; OVALOCYTE 2+
[2024-05-24] MEDS ORDERED: VANCOMYCIN 1 GM PREMIX (F) 1 GM/200 ML BAG ONE (19:10)
[2024-05-24] MEDS ORDERED: CEFEPIME HCL/D5W 1 GM/50 ML BAG IVPB ONE (19:10)
[2024-05-24] MEDS ORDERED: AZITHROMYCIN IVPB 500 MG/250 ML BAG IVPB ONE (19:10)
[2024-05-24] MEDS: SODIUM CHLORIDE 0.9% 1000 ML INFUS.BAG IV ONE (19:20)
[2024-05-24] MEDS: CEFEPIME HCL 1 GM VIAL (RESTRICTED TO ID) IVPB ONE (19:21)
[2024-05-24] MEDS: AZITHROMYCIN IVPB 500 MG in DEXTROSE 5%-WATER - 250 ML IVPB ONE (19:46)
[2024-05-24] MEDS: VANCOMYCIN 1,000 MG in DEXTROSE 5%-WATER - 250 ML IVPB ONE (20:55)
[2024-05-25] MEDS ORDERED: DOCUSATE SODIUM 100 MG CAPSULE (FP) PO PRN (06:30)
[2024-05-25 08:41] LABS: POTASSIUM 3.9 mmol/L (3.5-5.1)
[2024-05-25 08:54] LABS: BLOOD UREA NITROGEN 33.2 mg/dL (7-18)
[2024-05-25 08:56] LABS: CALCIUM 8.9 mg/dL (8.5-10.1)
[2024-05-25 08:58] LABS: CREATININE 1.3 mg/dL (0.55-1.3)
[2024-05-25 09:07] LABS: BASO % 0.2 % (0-2.0); EOS % 1.1 % (0-4.5); HEMATOCRIT 25.5 % (35.4-49); HEMOGLOBIN 7.9 GM/dL (11.7-16.9); LYMPH % 14.4 % (8-40); MCHC 30.9 g/dl (32.0-35.9); MEAN CELL VOLUME 61.9 fl (80-96); MEAN PLT VOLUME 8.6 fl (7.5-11.1); NEUT % 78.3 % (42.8-82.8); PLATELET COUNT 246 10^3/uL (134-434); RBC 4.12 M/mm3 (4.00-5.60); RDW 49.5 % (11.9-15.9); WHITE BLOOD COUNT 19.4 K/mm3 (4.0-10.0)
[2024-05-25 09:12] LABS: MCH 19.1 pg (25.7-33.7)
[2024-05-25] MEDS: APIXABAN 5 MG TABLET PO SCH (09:38)
[2024-05-25] MEDS: ESCITALOPRAM OXALATE 10 MG TABLET PO SCH (09:38)
[2024-05-25] MEDS: levETIRAcetam 500 MG TABLET (FP) PO SCH (09:38)
[2024-05-25] MEDS: ASPIRIN COATED 81 MG TABLET.EC PO SCH (09:38)
[2024-05-25] MEDS: TAMSULOSIN HCL 0.4 MG CAP PO SCH (09:39)
[2024-05-25] MEDS: CEFEPIME HCL/D5W 2 GM/50 ML BAG IVPB SCH (09:40)
[2024-05-25] MEDS: TIMOLOL 0.5% OPHTHALMIC SOL 5 ML BOTTLE OU SCH (09:40)
[2024-05-25] MEDS: POLYETHYLENE GLYCOL (HEALTHYLAX) 3350 17 GM PACKET PO SCH (09:40)
[2024-05-25] MEDS: CEFEPIME HCL 2 GM VIAL (RESTRICTED TO ID) IVPB SCH (16:44)
[2024-05-25] MEDS: CEFEPIME HCL/D5W 1 GM/50 ML BAG IVPB SCH (17:19)
[2024-05-25] MEDS ORDERED: CEFEPIME HCL 1 GM VIAL (RESTRICTED TO ID) IVPB SCH (18:00)
[2024-05-25 18:43] LABS: URINE APPEARANCE CLOUDY; URINE BILIRUBIN NEGATIVE (NEGATIVE); URINE COLOR YELLOW; URINE KETONE TRACE (NEGATIVE)
[2024-05-25 18:44] LABS: PH,URINE 5.5 (5.0-8.0); URINE LEUK ESTERASE 2+ (NEGATIVE); URINE NITRITE NEGATIVE (NEGATIVE); URINE PROTEIN NEGATIVE (NEGATIVE); URINE UROBILINOGEN 0.2 mg/dL (0.2-1.0)
[2024-05-25] MEDS ORDERED: VANCOMYCIN/WATER FOR INJ (PEG) 1,000 MG/200 ML BAG IVPB SCH (19:00)
[2024-05-25] MEDS ORDERED: VANCOMYCIN 1,000 MG in DEXTROSE 5%-WATER - 250 ML IVPB SCH (19:00)
[2024-05-25] MEDS: QUEtiapine FUMARATE 25 MG TABLET PO SCH (23:01)
[2024-05-25] MEDS: MIRTAZAPINE 15 MG TABLET (FP) PO SCH (23:01)
[2024-05-25] MEDS: ATORVASTATIN CA 20 MG TABLET (FP) PO SCH (23:01)
[2024-05-26 08:14] LABS: BASO % 0.5 % (0-2.0); EOS % 3.6 % (0-4.5); HEMATOCRIT 23.9 % (35.4-49); HEMOGLOBIN 7.5 GM/dL (11.7-16.9); LYMPH % 19.8 % (8-40); MCHC 31.5 g/dl (32.0-35.9); MEAN CELL VOLUME 61.4 fl (80-96); NEUT % 69.1 % (42.8-82.8); RBC 3.89 M/mm3 (4.00-5.60); RDW 49.7 % (11.9-15.9); WHITE BLOOD COUNT 12.5 K/mm3 (4.0-10.0)
[2024-05-26 08:21] LABS: MCH 19.4 pg (25.7-33.7)
[2024-05-26 08:29] LABS: POTASSIUM 4.3 mmol/L (3.5-5.1)
[2024-05-26 08:49] LABS: ALBUMIN 3.3 g/dl (3.4-5.0); BLOOD UREA NITROGEN 29.3 mg/dL (7-18); CALCIUM 8.9 mg/dL (8.5-10.1)
[2024-05-26 08:53] LABS: CREATININE 1.1 mg/dL (0.55-1.3)
[2024-05-26 08:54] LABS: BILIRUBIN,TOTAL 0.8 mg/dL (0.2-1); TOT PROT 7.2 g/dl (6.4-8.2)
[2024-05-26 10:29] LABS: MEAN PLT VOLUME 10.2 fl (7.5-11.1); PLATELET COUNT 338 10^3/uL (134-434)
[2024-05-26] MEDS: ALBUTEROL SO4 2.5/IPRATROPIUM 0.5 INH SOL 3 ML VIAL.NEB. NEB SCH (17:35)
[2024-05-26 17:48] LABS: ARTERIAL BLD GAS O2 SATURATION 95.4 % (95-98); ARTERIAL BLOOD GAS BASE EXCESS -1.4 mmol/L (-2-2); ARTERIAL BLOOD GAS PO2 71.3 mmHg (80-100); ARTERIAL BLOOD GAS pH 7.463 (7.350-7.450)
[2024-05-26 17:49] LABS: ALLENS TEST POSITIVE
[2024-05-27] MEDS: metoPROLOL SUCCINATE 25 MG TAB.SR.24H (FP) PO SCH (09:22)
[2024-05-27 11:52] LABS: BASO % 0.4 % (0-2.0); EOS % 0.8 % (0-4.5); HEMATOCRIT 26.2 % (35.4-49); HEMOGLOBIN 8.1 GM/dL (11.7-16.9); LYMPH % 8.5 % (8-40); MCH 18.9 pg (25.7-33.7); MCHC 30.8 g/dl (32.0-35.9); MEAN CELL VOLUME 61.4 fl (80-96); MEAN PLT VOLUME 9.6 fl (7.5-11.1); MONO % 7.6 % (3.8-10.2); NEUT % 82.7 % (42.8-82.8); PLATELET COUNT 305 10^3/uL (134-434); RBC 4.27 M/mm3 (4.00-5.60); RDW 49.3 % (11.9-15.9); WHITE BLOOD COUNT 15.3 K/mm3 (4.0-10.0)
[2024-05-27 12:12] LABS: POTASSIUM 4.6 mmol/L (3.5-5.1)
[2024-05-27 12:16] LABS: ALBUMIN 3.6 g/dl (3.4-5.0); BLOOD UREA NITROGEN 25.6 mg/dL (7-18); CALCIUM 9.2 mg/dL (8.5-10.1)
[2024-05-27 12:19] LABS: CREATININE 1.4 mg/dL (0.55-1.3)
[2024-05-27 12:20] LABS: BILIRUBIN,TOTAL 1.2 mg/dL (0.2-1)
[2024-05-27 12:21] LABS: TOT PROT 7.9 g/dl (6.4-8.2)
[2024-05-27] MEDS: ACETAMINOPHEN 325 MG TABLET (FP) PO PRN (18:08)
[2024-05-27] MEDS: MEROPENEM-0.9% SODIUM CHLORIDE 1 GM/50 ML BAG IVPB SCH (21:35)
[2024-05-27] MEDS: VANCOMYCIN/WATER FOR INJ (PEG) 1,000 MG/200 ML BAG IVPB ONE (23:32)
[2024-05-28 07:43] LABS: BASO % 0.6 % (0-2.0); EOS % 1.3 % (0-4.5); HEMOGLOBIN 7.8 GM/dL (11.7-16.9); LYMPH % 16.7 % (8-40); MCHC 30.1 g/dl (32.0-35.9); MEAN CELL VOLUME 61.7 fl (80-96); MEAN PLT VOLUME 9.7 fl (7.5-11.1); MONO % 10.3 % (3.8-10.2); NEUT % 71.1 % (42.8-82.8); PLATELET COUNT 290 10^3/uL (134-434); RBC 4.21 M/mm3 (4.00-5.60); RDW 49.6 % (11.9-15.9); WHITE BLOOD COUNT 14.1 K/mm3 (4.0-10.0)
[2024-05-28 08:06] LABS: MCH 18.6 pg (25.7-33.7)
[2024-05-28 08:22] LABS: ALBUMIN 3.3 g/dl (3.4-5.0); BLOOD UREA NITROGEN 31.3 mg/dL (7-18); CALCIUM 8.9 mg/dL (8.5-10.1)
[2024-05-28 08:25] LABS: CREATININE 1.4 mg/dL (0.55-1.3)
[2024-05-28 08:27] LABS: TOT PROT 7.7 g/dl (6.4-8.2)
[2024-05-28 09:37] LABS: ANISOCYTOSIS 3+; MACROCYTOSIS 0; OVALOCYTE 1+
[2024-05-28] MEDS: COLCHICINE 0.6 MG TAB PO SCH (13:52)
[2024-05-28] MEDS ORDERED: INDOMETHACIN 25 MG CAPSULE PO SCH (14:00)
[2024-05-28] MEDS: IBUPROFEN 600 MG TABLET (FP) PO SCH (15:34)
[2024-05-29 07:17] LABS: BASO % 0.7 % (0-2.0); HEMATOCRIT 26.2 % (35.4-49); HEMOGLOBIN 8.1 GM/dL (11.7-16.9); LYMPH % 19.2 % (8-40); MCHC 30.9 g/dl (32.0-35.9); MEAN PLT VOLUME 9.7 fl (7.5-11.1); MONO % 8.7 % (3.8-10.2); NEUT % 68.4 % (42.8-82.8); PLATELET COUNT 295 10^3/uL (134-434); RBC 4.23 M/mm3 (4.00-5.60); RDW 49.3 % (11.9-15.9)
[2024-05-29 07:31] LABS: MCH 19.2 pg (25.7-33.7)
[2024-05-29 07:33] LABS: POTASSIUM 4.9 mmol/L (3.5-5.1)
[2024-05-29 07:36] LABS: CALCIUM 9.7 mg/dL (8.5-10.1)
[2024-05-29 07:37] LABS: ALBUMIN 3.3 g/dl (3.4-5.0); BLOOD UREA NITROGEN 34.7 mg/dL (7-18)
[2024-05-29 07:40] LABS: CREATININE 1.4 mg/dL (0.55-1.3)
[2024-05-29 07:44] LABS: BILIRUBIN,TOTAL 0.9 mg/dL (0.2-1); TOT PROT 7.9 g/dl (6.4-8.2)
[2024-05-29 09:01] LABS: PLATELET ESTIMATE ADEQUATE
[2024-05-30] MEDS: SODIUM CHLORIDE 1,000 ML IV STA ×2 (02:35→10:00)
[2024-05-30] MEDS: ATROPINE SULFATE 1 MG/10 ML DISP.SYRIN IVPUSH ONE (02:56)
[2024-05-30] MEDS ORDERED: EPINEPHrine 1:10,000 (P-F SYR) 1 MG/10 ML DISP.SYRIN ONE (03:32)
[2024-05-30] MEDS: DOPAMINE 400 MG/D5W - 400,000 MCG/250 ML INFUS.BAG IVPB SCH ×2 (03:40→18:57)
[2024-05-30] MEDS ORDERED: DOPAMINE 400 MG/D5W - 400,000 MCG/250 ML INFUS.BAG IVPB ONE (03:44)
[2024-05-30 04:07] LABS: HEMATOCRIT 22.8 % (35.4-49); MCHC 30.8 g/dl (32.0-35.9); MEAN CELL VOLUME 61.8 fl (80-96); MEAN PLT VOLUME 9.2 fl (7.5-11.1); PLATELET COUNT 335 10^3/uL (134-434); WHITE BLOOD COUNT 11.2 K/mm3 (4.0-10.0)
[2024-05-30 04:20] LABS: POTASSIUM 5.8 mmol/L (3.5-5.1)
[2024-05-30 04:22] LABS: ALBUMIN 2.7 g/dl (3.4-5.0)
[2024-05-30 04:25] LABS: CREATININE 1.7 mg/dL (0.55-1.3)
[2024-05-30 04:27] LABS: BILIRUBIN,TOTAL 0.5 mg/dL (0.2-1); TOT PROT 6.6 g/dl (6.4-8.2)
[2024-05-30 04:36] LABS: CALCIUM 8.2 mg/dL (8.5-10.1)
[2024-05-30 04:40] LABS: PLATELET ESTIMATE ADEQUATE
[2024-05-30] MEDS: DEXTROSE 50%-WATER 25 GM/50 ML DISP.SYRIN IVPUSH ONE (08:05)
[2024-05-30] MEDS: INSULIN REGULAR HUMAN 100 UNITS/ML *VIAL IVPUSH ONE (08:05)
[2024-05-30] MEDS: SODIUM ZIRCONIUM CYCLOSILICATE (LOKELMA) 5 GM PACKET PO ONE (08:14)
[2024-05-30] MEDS: CALCIUM GLUCONATE 10% - 1,000 MG/10 ML VIAL IVPUSH ONE (10:04)
[2024-05-30] MEDS: SODIUM CHLORIDE 1,000 ML IV SCH (10:05)
[2024-05-30] MEDS: MUPIROCIN 2% TOPICAL OINTMENT FOR DECOLONIZATION NS SCH (10:12)
[2024-05-30 11:03] LABS: HEMATOCRIT 24.2 % (35.4-49); HEMOGLOBIN 7.4 GM/dL (11.7-16.9); MCHC 30.7 g/dl (32.0-35.9); MEAN CELL VOLUME 62.1 fl (80-96); MEAN PLT VOLUME 9.5 fl (7.5-11.1); PLATELET COUNT 348 10^3/uL (134-434); RBC 3.89 M/mm3 (4.00-5.60); RDW 48.4 % (11.9-15.9); WHITE BLOOD COUNT 12.7 K/mm3 (4.0-10.0)
[2024-05-30 11:09] LABS: MCH 19.1 pg (25.7-33.7)
[2024-05-30] MEDS: levETIRAcetam 500 MG/5 ML INJECTION VIAL IVPB SCH (11:32)
[2024-05-30 12:23] LABS: POTASSIUM 4.8 mmol/L (3.5-5.1)
[2024-05-30 12:25] LABS: CALCIUM 8.7 mg/dL (8.5-10.1)
[2024-05-30 12:26] LABS: ALBUMIN 2.7 g/dl (3.4-5.0); BLOOD UREA NITROGEN 36.3 mg/dL (7-18); MAGNESIUM 2.3 mg/dL (1.8-2.4)
[2024-05-30 12:29] LABS: CREATININE 1.4 mg/dL (0.55-1.3); PHOSPHOROUS 3.8 mg/dL (2.5-4.9)
[2024-05-30 12:30] LABS: TOT PROT 6.6 g/dl (6.4-8.2)
[2024-05-30 12:32] LABS: BILIRUBIN,TOTAL 0.7 mg/dL (0.2-1)
[2024-05-30 13:07] LABS: EPI CELLS 0 /uL (0-25.1); HYALINE CASTS 1 /uL (0-3.1); PH,URINE 5.5 (5.0-8.0); URINE APPEARANCE CLEAR; URINE BACTERIA 692 /uL (0-1359); URINE BILIRUBIN NEGATIVE (NEGATIVE); URINE COLOR YELLOW; URINE GLUCOSE (UA) TRACE (NEGATIVE); URINE KETONE NEGATIVE (NEGATIVE); URINE LEUK ESTERASE 3+ (NEGATIVE); URINE NITRITE NEGATIVE (NEGATIVE); URINE PROTEIN TRACE (NEGATIVE); URINE RBC 10 /uL (0-23.9); URINE UROBILINOGEN 0.2 mg/dL (0.2-1.0); URINE WBC 448 /uL (0-25.8)
[2024-05-30] MEDS: CHLORHEXIDINE GLUCONATE 4% CLEANSER FOR DECOLONIZATION TP SCH (21:27)
[2024-05-31 07:41] LABS: HEMATOCRIT 26.7 % (35.4-49); HEMOGLOBIN 8.1 GM/dL (11.7-16.9); MCHC 30.4 g/dl (32.0-35.9); MEAN CELL VOLUME 62.5 fl (80-96); MEAN PLT VOLUME 9.1 fl (7.5-11.1); RBC 4.26 M/mm3 (4.00-5.60); RDW 49.2 % (11.9-15.9); WHITE BLOOD COUNT 9.6 K/mm3 (4.0-10.0)
[2024-05-31 08:28] LABS: PLATELET COUNT 342 10^3/uL (134-434)
[2024-05-31 08:29] LABS: POTASSIUM 5.2 mmol/L (3.5-5.1)
[2024-05-31 08:31] LABS: CALCIUM 9.3 mg/dL (8.5-10.1)
[2024-05-31 08:32] LABS: BLOOD UREA NITROGEN 24.5 mg/dL (7-18)
[2024-05-31 08:34] LABS: ALBUMIN 3.6 g/dl (3.4-5.0)
[2024-05-31 08:35] LABS: CREATININE 1.1 mg/dL (0.55-1.3)
[2024-05-31 08:36] LABS: BILIRUBIN,TOTAL 0.8 mg/dL (0.2-1)
[2024-05-31 08:37] LABS: TOT PROT 8.4 g/dl (6.4-8.2)
[2024-05-31] MEDS: SODIUM ZIRCONIUM CYCLOSILICATE (LOKELMA) 5 GM PACKET PO SCH (12:42)
[2024-06-01 08:00] LABS: POTASSIUM 4.8 mmol/L (3.5-5.1)
[2024-06-01 08:02] LABS: BLOOD UREA NITROGEN 18.1 mg/dL (7-18); CALCIUM 8.6 mg/dL (8.5-10.1)
[2024-06-01 08:05] LABS: CREATININE 1.1 mg/dL (0.55-1.3)
[2024-06-01 08:07] LABS: BILIRUBIN,TOTAL 0.6 mg/dL (0.2-1); TOT PROT 6.7 g/dl (6.4-8.2)
[2024-06-01 08:10] LABS: ALBUMIN 2.8 g/dl (3.4-5.0)
[2024-06-01 08:10] LABS: HEMATOCRIT 22.2 % (35.4-49); HEMOGLOBIN 6.9 GM/dL (11.7-16.9); MCHC 31.1 g/dl (32.0-35.9); MEAN PLT VOLUME 8.6 fl (7.5-11.1); PLATELET COUNT 286 10^3/uL (134-434); RBC 3.64 M/mm3 (4.00-5.60); WHITE BLOOD COUNT 7.2 K/mm3 (4.0-10.0)
[2024-06-01] MEDS: METOPROLOL TARTRATE 5 MG/5 ML VIAL IVPUSH ONE (16:59)
[2024-06-01] MEDS: FUROSEMIDE 40 MG/4 ML INJECTABLE VIAL IVPUSH ONE (16:59)
[2024-06-01] MEDS ORDERED: METOPROLOL TARTRATE 5 MG/5 ML VIAL IVPUSH PRN (17:26)
[2024-06-01] MEDS: LIPASE/PROTEASE/AMYLASE 36,000 UNIT CAPSULE PO SCH (17:56)
[2024-06-01 18:04] LABS: EPI CELLS 1 /uL (0-25.1); HYALINE CASTS 0 /uL (0-3.1); URINE APPEARANCE CLEAR; URINE BACTERIA 1 /uL (0-1359); URINE BILIRUBIN NEGATIVE (NEGATIVE); URINE COLOR YELLOW; URINE GLUCOSE (UA) NEGATIVE (NEGATIVE); URINE KETONE NEGATIVE (NEGATIVE); URINE LEUK ESTERASE NEGATIVE (NEGATIVE); URINE NITRITE NEGATIVE (NEGATIVE); URINE PROTEIN NEGATIVE (NEGATIVE); URINE RBC 4 /uL (0-23.9); URINE UROBILINOGEN 0.2 mg/dL (0.2-1.0); URINE WBC 6 /uL (0-25.8)
[2024-06-01 18:39] LABS: POTASSIUM 4.7 mmol/L (3.5-5.1)
[2024-06-01 18:41] LABS: ALBUMIN 3.3 g/dl (3.4-5.0); CALCIUM 8.9 mg/dL (8.5-10.1)
[2024-06-01 18:42] LABS: BLOOD UREA NITROGEN 16.4 mg/dL (7-18)
[2024-06-01 18:46] LABS: BILIRUBIN,TOTAL 1.3 mg/dL (0.2-1); TOT PROT 7.6 g/dl (6.4-8.2)
[2024-06-01 19:44] LABS: BILIRUBIN,DIRECT 0.4 mg/dL (0.0-0.2)
[2024-06-01 19:46] LABS: BILIRUBIN,TOTAL 1.2 mg/dL (0.2-1)
[2024-06-02] MEDS: PANTOPRAZOLE 40 MG TABLET PO SCH (09:18)
[2024-06-02 09:22] LABS: INR 1.13 (0.83-1.09)
[2024-06-02 09:26] LABS: BASO % 0.6 % (0-2.0); EOS % 3.6 % (0-4.5); HEMATOCRIT 30.1 % (35.4-49); HEMOGLOBIN 9.7 GM/dL (11.7-16.9); LYMPH % 26.8 % (8-40); MCH 20.8 pg (25.7-33.7); MCHC 32.1 g/dl (32.0-35.9); MEAN CELL VOLUME 64.6 fl (80-96); MEAN PLT VOLUME 8.9 fl (7.5-11.1); PLATELET COUNT 367 10^3/uL (134-434); RBC 4.66 M/mm3 (4.00-5.60); RDW 47.6 % (11.9-15.9); WHITE BLOOD COUNT 9.8 K/mm3 (4.0-10.0)
[2024-06-02 09:35] LABS: HEMATOCRIT 30.4 % (35.4-49); HEMOGLOBIN 9.7 GM/dL (11.7-16.9); MCH 20.8 pg (25.7-33.7); MCHC 31.9 g/dl (32.0-35.9); MEAN CELL VOLUME 65.2 fl (80-96); MEAN PLT VOLUME 8.7 fl (7.5-11.1); PLATELET COUNT 326 10^3/uL (134-434); RBC 4.66 M/mm3 (4.00-5.60); RDW 47.5 % (11.9-15.9); WHITE BLOOD COUNT 9.8 K/mm3 (4.0-10.0)
[2024-06-02 09:55] LABS: POTASSIUM 4.4 mmol/L (3.5-5.1)
[2024-06-02] MEDS ORDERED: METOPROLOL TARTRATE 25 MG TABLET (FP) PO SCH (10:00)
[2024-06-02 10:15] LABS: BLOOD UREA NITROGEN 13.4 mg/dL (7-18)
[2024-06-02 10:19] LABS: CREATININE 0.9 mg/dL (0.55-1.3)
[2024-06-02 10:20] LABS: BILIRUBIN,TOTAL 1.2 mg/dL (0.2-1); TOT PROT 7.1 g/dl (6.4-8.2)
[2024-06-02 10:24] LABS: ALBUMIN 3.3 g/dl (3.4-5.0)
[2024-06-02 10:27] LABS: ANISOCYTOSIS 3+; MACROCYTOSIS 0
[2024-06-02] MEDS: levETIRAcetam 500 MG/5 ML ORAL SOLUTION (UNIT-DOSE CUPS) PO SCH (12:11)
[2024-06-02] MEDS: FUROSEMIDE 40 MG TABLET (FP) PO ONE (12:12)
[2024-06-02] MEDS: METOPROLOL TARTRATE 25 MG TABLET (FP) PO SCH (12:14)
[2024-06-02 13:38] VITALS: BMI 23.2
[2024-06-02] MEDS: FOLIC ACID 1 MG TABLET (FP) PO SCH (22:53)
[2024-06-03 14:15] VITALS: BP 161/79; PULSE 81; RESP 18; TEMP 97.4
== END 2024-06-03 14:53 | disposition short-term general hospital (02) | DRG 871 ==
LOC: JER 15:01 → JERBED 18:01 → J4W 05-25 02:29 → JICU 05-30 03:30 → J4S 06-01 19:57
PROVIDERS: ADMIT Internal Medicine; ATTEND Internal Medicine
PROC: 30233N1 Transfusion of Nonautologous Red Blood Cells into Peripheral Vein, Percutaneous Approach (ICD-10-PCS; principal; 2024-06-01)
DX: A41.9 Sepsis, unspecified organism (principal); J18.9 Pneumonia, unspecified organism; I30.9 Acute pericarditis, unspecified; N17.9 Acute kidney failure, unspecified; I69.354 Hemiplegia and hemiparesis following cerebral infarction affecting left non-dominant side; J44.0 Chronic obstructive pulmonary disease with (acute) lower respiratory infection; I13.0 Hypertensive heart and chronic kidney disease with heart failure and stage 1 through stage 4 chronic kidney disease, or unspecified chronic kidney disease; N39.0 Urinary tract infection, site not specified; E03.9 Hypothyroidism, unspecified; E78.5 Hyperlipidemia, unspecified; I25.10 Atherosclerotic heart disease of native coronary artery without angina pectoris; J45.909 Unspecified asthma, uncomplicated; I48.0 Paroxysmal atrial fibrillation; N40.0 Benign prostatic hyperplasia without lower urinary tract symptoms; R00.1 Bradycardia, unspecified; E87.5 Hyperkalemia; Z68.21 Body mass index [BMI] 21.0-21.9, adult; D64.9 Anemia, unspecified
CPT/HCPCS: 0241U-QW; 36415; 36430; 36600; 70450-TC; 71045-TC-FY; 71250-TC; 80048; 80053; 81003; 82247; 82248; 82272; 82550; 82728; 82746; 82803; 82962; 83010; 83540; 83550; 83605; 83615; 83735; 84100; 84439; 84443; 84484; 85025; 85027; 85045; 85384; 85610; 85651; 85730; 86078; 86140; 86850; 86880; 86900; 86901; 86922; 87040; 87070; 87077; 87086; 87205; 87481; 87899; 93005; 93010; 93306-TC; 94640; 97116-GP; 97162-GP; 99285-25; G0480; P9058